=== PATIENT | female | born 1960 | race Caucasian/White ===

== ENCOUNTER 2017-11-10 08:26 | Outpatient (CLI) | payer MEDICAID, SELFPAY ==
[2017-11-10 09:08] VITALS: BP 142/86; PULSE 71; RESP 20; TEMP 37; O2SAT 95
[2017-11-10 09:43] VITALS: BP 107/78; PULSE 72; RESP 16; O2SAT 95
--- NOTE | 2017-11-10 09:45 | DI.REPORT_ITS ---
SYMPTOM/DIAGNOSIS: LUMBAR SPONDYLOSIS, LUMBAR MEDIAL BRANCH BLOCK C-ARM: Fluoroscopy Time: 18.7seconds Images submitted from the pain clinic demonstrate needles projected over the left and right pedicles of L 4, L 5 and S 1 in conjunction with a lumbar medial branch block. Please see the procedure report for further information.
[2017-11-10] MEDS: Bupivacaine 0.5% Pres-Free 30 ML VIAL IJ (09:54)
[2017-11-10] MEDS: Omnipaque 240 MG/ML 50 ML BTL IJ (09:55)
--- NOTE | 2017-11-10 09:59 | PDOC.PAIN_ITS ---
Pain Clinic Procedure Note Patient Problems: Current Active Problems Problem Status Onset Spondylosis of lumbar region without myelopathy or radiculopathy Chronic Lumbar/Sacral Medial Branch Blocks DERIK DAWKINS has been referred to the [facility] for lumbar/sacral medial branch blocks. COMMENTS: Low back pain Patient was interviewed and the medical record reviewed. There were no medical , pharmacologic, radiographic or other structural contraindications to attempting fluoroscopically guided local anesthetic lumbar/sacral medial branch blocks. Risks and expected side effects as well as potential benefit of the procedure were reviewed and voiced concerns addressed. The printed consent form was signed and witnessed. Standard time-out procedure was performed. Patient was placed in the prone position on the fluoroscopy table and automated blood pressure cuff and pulse oximeter applied. The skin entry points for approaching the anatomic target points of the segmental medial branches of { bilateral L3, 4,5} were identified with anfluoroscopy and marked. Following thorough Chlorhexadine preparation of the skin and draping and 1% lidocaine infiltration of the skin entry points and subcutaneous tissues, a 22 gauge spinal needle was placed under fluoroscopic guidance down on to the target point for each respective segmental medial branch.Position was confirmed in A/P, oblique and lateral views with 0.25ml of omnipaque 240. At each point .5ml 0.5% Bupivacaine was injected. Vital signs were stable throughout the procedure and were as recorded in the docflowsheet by the nursing staff. Follow up plans and appointments were discussed and was instructed to keep careful note of how the usual pain was modified by these injections. Specifically was asked to keep a pain diary for the next 24 hours using a numeric pain scale of 0-10 and report these results at the follow-up visit. Post procedure instruction was given as documented in the nursing documentation and having met discharge criteria. Patient was discharged from the [facility]. Based on the medial branches blocked today, if the patient has adequate relief and we are able to proceed to radiofrequency ablation, the treatment should result in the denervation of the { bilateral L4-5, L5-S1 FACET JOINTS}. We would expect to denervate a total of {4} facets during the radiofrequency ablation. COMMENTS: Pain went from 8/10-0/10. She will follow-up for either repeat block with 2% lidocaine or RF depending on her insurance and depending if she meets criteria CC: Villa Navas
== END 2017-11-10 08:27 ==
PROVIDERS: PCP General Practice; Visit Provider Anesthesiology Pain Medicine
DX: M47.816 Spondylosis without myelopathy or radiculopathy, lumbar region (principal); G89.29 Other chronic pain
CPT/HCPCS: 64493 ×2; 64494 ×2; 72100; Q9967

== ENCOUNTER 2017-12-08 09:10 | Outpatient (CLI) | payer MEDICAID, SELFPAY ==
--- NOTE | 2017-12-08 06:00 | DI.RAD_ITS ---
SYMPTOM/DIAGNOSIS: LUMBAR SPONDYLOSIS PAIN CLINIC: Fluoroscopy Time: 18.3 secs Images submitted from the Pain Clinic demonstrate positioning of needles over the facet joints at L4, L5 and L5-S1 in conjunction with injections carried out by Dr. Diaz. Please see the procedure report for further information.
[2017-12-08 09:16] VITALS: BP 146/82; PULSE 76; RESP 18; TEMP 36; O2SAT 96
--- NOTE | 2017-12-08 10:09 | PDOC.PAIN ---
Pain Clinic Procedure Note Current Active Problems Problem Status Onset Spondylosis of lumbar region without myelopathy or radiculopathy Chronic Lumbar/Sacral Medial Branch Blocks DERIK DAWKINS has been referred to the [facility] for lumbar/sacral medial branch blocks. COMMENTS: patient had previous medial branch block good results for 4 hours. Patient was interviewed and the medical record reviewed. There were no medical, pharmacologic, radiographic or other structural contraindications to attempting fluoroscopically guided local anesthetic lumbar/sacral medial branch blocks. Risks and expected side effects as well as potential benefit of the procedure were reviewed and voiced concerns addressed. The printed consent form was signed and witnessed. Standard time-out procedure was performed. Patient was placed in the prone position on the fluoroscopy table and automated blood pressure cuff and pulse oximeter applied. The skin entry points for approaching the anatomic target points of the segmental medial branches of { bilateral L 3, 4, 5 } were identified with anfluoroscopy and marked. Following thorough Chlorhexadine preparation of the skin and draping and 1% lidocaine infiltration of the skin entry points and subcutaneous tissues, a 22 gauge spinal needle was placed under fluoroscopic guidance down on to the target point for each respective segmental medial branch.Position was confirmed in A/P, oblique and lateral views with 0.25ml of omnipaque 240. At each point .5ml 2% lidocaine was injected. Vital signs were stable throughout the procedure and were as recorded in the docflowsheet by the nursing staff. Follow up plans and appointments were discussed and was instructed to keep careful note of how the usual pain was modified by these injections. Specifically was asked to keep a pain diary for the next 24 hours using a numeric pain scale of 0-10 and report these results at the follow-up visit. Post procedure instruction was given as documented in the nursing documentation and having met discharge criteria. Patient was discharged from the [facility]. Based on the medial branches blocked today, if the patient has adequate relief and we are able to proceed to radiofrequency ablation, the treatment should result in the denervation of the {bilateral L4-5, L5-W3CDYKC JOINTS}. We would expect to denervate a total of {4} facets during the radiofrequency ablation. COMMENTS: The pain went from 6/10 to 0/10. She will follow-up for radiofrequency ablation if she meets the criteria. CC: Villa Navas
[2017-12-08] MEDS: Omnipaque 240 MG/ML 50 ML BTL IJ (10:13)
[2017-12-08] MEDS: Lidocaine 2% Pres-Free 5 ML VIAL IJ (10:14)
--- NOTE | 2017-12-08 10:14 | PDOC.PAIN_ITS ---
Pain Clinic Procedure Note Current Active Problems Problem Status Onset Spondylosis of lumbar region without myelopathy or radiculopathy Chronic Lumbar/Sacral Medial Branch Blocks DERIK DAWKINS has been referred to the [facility] for lumbar/sacral medial branch blocks. COMMENTS: patient had previous medial branch block good results for 4 hours. Patient was interviewed and the medical record reviewed. There were no medical , pharmacologic, radiographic or other structural contraindications to attempting fluoroscopically guided local anesthetic lumbar/sacral medial branch blocks. Risks and expected side effects as well as potential benefit of the procedure were reviewed and voiced concerns addressed. The printed consent form was signed and witnessed. Standard time-out procedure was performed. Patient was placed in the prone position on the fluoroscopy table and automated blood pressure cuff and pulse oximeter applied. The skin entry points for approaching the anatomic target points of the segmental medial branches of { bilateral L 3, 4, 5 } were identified with anfluoroscopy and marked. Following thorough Chlorhexadine preparation of the skin and draping and 1% lidocaine infiltration of the skin entry points and subcutaneous tissues, a 22 gauge spinal needle was placed under fluoroscopic guidance down on to the target point for each respective segmental medial branch.Position was confirmed in A/P, oblique and lateral views with 0.25ml of omnipaque 240. At each point .5ml 2% lidocaine was injected. Vital signs were stable throughout the procedure and were as recorded in the docflowsheet by the nursing staff. Follow up plans and appointments were discussed and was instructed to keep careful note of how the usual pain was modified by these injections. Specifically was asked to keep a pain diary for the next 24 hours using a numeric pain scale of 0-10 and report these results at the follow-up visit. Post procedure instruction was given as documented in the nursing documentation and having met discharge criteria. Patient was discharged from the [facility]. Based on the medial branches blocked today, if the patient has adequate relief and we are able to proceed to radiofrequency ablation, the treatment should result in the denervation of the {bilateral L4-5, L5-Z3KSISL JOINTS}. We would expect to denervate a total of {4} facets during the radiofrequency ablation. COMMENTS: The pain went from 6/10 to 0/10. She will follow-up for radiofrequency ablation if she meets the criteria. CC: Villa Navas
[2017-12-08 10:15] VITALS: BP 173/88; PULSE 86; RESP 21; O2SAT 97
== END 2017-12-08 09:30 ==
PROVIDERS: PCP General Practice; Visit Provider Anesthesiology Pain Medicine
DX: M47.816 Spondylosis without myelopathy or radiculopathy, lumbar region (principal); G89.29 Other chronic pain
CPT/HCPCS: 64493 ×2; 64494 ×2; 64495 ×2; 72100; Q9967

== ENCOUNTER 2017-12-30 07:33 | Outpatient (CLI) | payer MEDICAID, SELFPAY ==
[2017-12-30 07:42] VITALS: BP 134/86; PULSE 75; RESP 18; TEMP 36.8; O2SAT 96
[2017-12-30] MEDS: fentaNYL 100 MCG/2 ML VIAL IVP ×2 (08:26→08:31)
[2017-12-30] MEDS: Midazolam 2 MG/2 ML VIAL IVP (08:26)
[2017-12-30] MEDS: Lactated Ringers 1,000 ML 80 ML IV (08:27)
--- NOTE | 2017-12-30 08:55 | DI.RAD_ITS ---
SYMPTOM/DIAGNOSIS: LUMBAR SPONDYLOSIS C-ARM: Fluoroscopy Time: 67 sec., 20.31 mGy. Images submitted from the pain clinic demonstrate needle positioning over the right and left lateral portions of the L 4, L 5 and L 5-S 1 levels in conjunction with a radiofrequency ablation. Please see Dr. Loera's procedure report for further information.
[2017-12-30 08:58] VITALS: BP 155/96; PULSE 71; RESP 14; O2SAT 96
--- NOTE | 2017-12-30 09:07 | PDOC.PAIN_ITS ---
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 DERIK has had long standing back pain thought to be facet joint generated and which has been refractory to other therapies. Local anesthetic medial branch blocks or intra- articular facet joint injections resulted in DERIK reporting reduction of the usual axial component of pain for at least the duration of the local anesthetic effect. COMMENTS: Previous success with LMBBs X 2 Patient was interviewed and the medical record reviewed. There were no medical , pharmacologic, radiographic or other structural contraindications to attempting fluoroscopically guided radiofrequency treatment. Risks and expected side effects as well as potential benefit of the procedure were reviewed and voiced concerns addressed. The printed consent form was signed and witnessed. Standard time-out procedure was performed. Patient was placed in the prone position on the fluoroscopy table and automated blood pressure cuff and pulse oximeter applied. The skin entry points for approaching the anatomic target points of the segmental medial branches of bilateral L3-L5DR were identified with fluoroscopy and marked. Following thorough Chlorhexadine preparation of the skin and draping and 1% lidocaine infiltration of the skin entry points and subcutaneous tissues, a single 18 guage curved 10 cm 10mm active tip radiofrequency cannula was placed under fluoroscopic guidance along or across the anatomic course of each respective segmental medial branch. Each placement was stimulated at 50Hz and les then 0.5V for medial branch sensory localization and the at 2Hz and up to 3 times the sensory voltage without any evidence of distal myotomal stimulation. 1cc of 1% ;idocaine was injected at each site. At each placement a continuous mode radiofrequency treatment was done at 85 degrees C for 90secs. 1/3 cc of Depomedrol (40 mg/cc) and 1 cc of 0.5% Bupivacaine was injected at each segmental branch nerve. The needles were removed without difficulty. This radiofrequency treatment should result in the denervation of the bilateral L4-L5 and L5-S1 FACET JOINTS. A total of 4 facets were expected to be denervated from today's treatment. Vital signs were stable throughout the procedure and were as recorded in the docflowsheet by the nursing staff. If given, dosages of intravenous drugs for anxiolysis and analgesia were documented in the Medication Administration Record (MAR). Follow up plans and appointments were discussed. Post procedure instruction was given as documented in the nursing documentation and having met discharge criteria, DERIK was discharged from the [facility]. COMMENTS: This procedure can be repeated without repeating the LMBBs if it gives her at least 6 months of pain relief. Villa Loera DO, MPH [facility] - Subspecialty Board Certification in Pain Medicine CC: Villa Navas
[2017-12-30] MEDS: Bupivacaine 0.5% Pres-Free 30 ML VIAL IJ (09:16)
[2017-12-30] MEDS: methylPREDNISolone ACETATE 40 MG/ML VIAL IJ (09:16)
[2017-12-30] MEDS: Lidocaine 2% Pres-Free 2 ML VIAL IJ (09:17)
== END 2017-12-30 07:53 ==
PROVIDERS: PCP General Practice; Visit Provider Preventive Medicine Occupational Medicine
DX: M47.816 Spondylosis without myelopathy or radiculopathy, lumbar region (principal); G89.29 Other chronic pain
CPT/HCPCS: 64635 ×2; 64636 ×2; 72100; J1030; J2250; J3010

== ENCOUNTER 2018-07-19 07:40 | Outpatient (CLI) | payer MEDICAID, SELFPAY ==
--- NOTE | 2018-07-19 06:00 | DI.RAD_ITS ---
SYMPTOM/DIAGNOSIS: LUMBAR SPONDYLOLYSIS C-ARM: Fluoroscopy Time: 75.8 seconds /26.21 mGy Fluoroscopy was utilized by Dr. Loera during the performance of a lumbar radiofrequency ablation. Please refer to the procedure report for complete details.
[2018-07-19 07:47] VITALS: BP 163/91; PULSE 75; RESP 18; TEMP 36.5; O2SAT 95
[2018-07-19] MEDS: Lactated Ringers 1,000 ML 80 ML IV (08:20)
[2018-07-19] MEDS: Midazolam 2 MG/2 ML VIAL IVP (08:23)
[2018-07-19] MEDS: fentaNYL 100 MCG/2 ML VIAL IVP ×2 (08:23→08:32)
[2018-07-19 09:07] VITALS: BP 162/96; PULSE 79; RESP 11; O2SAT 96
--- NOTE | 2018-07-19 09:07 | PDOC.PAIN ---
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 DERIK has had long standing back pain thought to be facet joint generated and which has been refractory to other therapies. Local anesthetic medial branch blocks or intra-articular facet joint injections resulted in DERKI reporting reduction of the usual axial component of pain for at least the duration of the local anesthetic effect. COMMENTS:She did very well the last RFA obtaining >6 months relief Patient was interviewed and the medical record reviewed. There were no medical, pharmacologic, radiographic or other structural contraindications to attempting fluoroscopically guided radiofrequency treatment. Risks and expected side effects as well as potential benefit of the procedure were reviewed and voiced concerns addressed. The printed consent form was signed and witnessed. Standard time-out procedure was performed. Patient was placed in the prone position on the fluoroscopy table and automated blood pressure cuff and pulse oximeter applied. The skin entry points for approaching the anatomic target points of the segmental medial branches of bilateral L3-L5DR were identified with fluoroscopy and marked. Following thorough Chlorhexadine preparation of the skin and draping and 1% lidocaine infiltration of the skin entry points and subcutaneous tissues, a single 18 guage curved 10 cm 10mm active tip radiofrequency cannula was placed under fluoroscopic guidance along or across the anatomic course of each respective segmental medial branch. Each placement was stimulated at 50Hz and les then 0.5V for medial branch sensory localization and the at 2Hz and up to 3 times the sensory voltage without any evidence of distal myotomal stimulation. 1cc of 1% ;idocaine was injected at each site. At each placement a continuous mode radiofrequency treatment was done at 80 degrees C for 90secs . This radiofrequency treatment should result in the denervation of the bilateral L4-L5 and L5-S1 FACET JOINTS. A total of 4 facets were expected to be denervated from today's treatment. Vital signs were stable throughout the procedure and were as recorded in the docflowsheet by the nursing staff. If given, dosages of intravenous drugs for anxiolysis and analgesia were documented in the Medication Administration Record (MAR). Follow up plans and appointments were discussed. Post procedure instruction was given as documented in the nursing documentation and having met discharge criteria, DERIK was discharged from the [facility]. COMMENTS: If she obtains at least 6 months of relief from this procedure, she can have it repeated without repeating the LMBBs. CC: Villa Navas
[2018-07-19] MEDS: methylPREDNISolone ACETATE 40 MG/ML VIAL IJ (09:09)
[2018-07-19] MEDS: Lidocaine 2% Pres-Free 5 ML VIAL IJ (09:10)
[2018-07-19] MEDS: Bupivacaine 0.5% Pres-Free 10 ML VIAL IJ (09:10)
== END 2018-07-19 08:00 ==
PROVIDERS: PCP General Practice; Visit Provider Preventive Medicine Occupational Medicine
DX: M47.816 Spondylosis without myelopathy or radiculopathy, lumbar region (principal); G89.29 Other chronic pain
CPT/HCPCS: 64635 ×2; 64636 ×2; 72100; J1030; J2250; J3010

== ENCOUNTER 2019-05-19 02:56 | Outpatient (CLI) | payer MEDICAID, SELFPAY ==
--- NOTE | 2019-05-19 14:00 | DI.CTLCSR_ITS ---
EXAM: CT CHEST LUNG CANCER SCREEN CLINICAL HISTORY: Screening for lung cancer Z87.891 PERS HX NICOTINE DEPENDENCE, Z12.2 SCREEN TECHNIQUE: Low-dose noncontrast COMPARISON: No exams were available for comparison FINDINGS: The right lobe of the thyroid is and is enlarged and partially included on the exam. Peripherally c alcified nodules are identified. The heart size is normal. There are mild coronary artery calcifica tions. There are no significant aortic calcifications. There is no evidence of adenopathy, pleural or pericardial effusion. Suture material is seen at the stomach. The patient is status post cholecy stectomy. The adrenals are and pancreas are grossly normal. No pulmonary nodules are identified. T here are no infiltrates. There are no significant emphysematous or interstitial changes. IMPRESSION: Lung RADS Cat 1 - Negative: No nodules and definitely benign nodules. Annual low-dose screening ches t CT is recommended.
== END 2019-05-19 03:16 ==
PROVIDERS: PCP Student in an Organized Health Care Education/Training Program; Visit Provider Student in an Organized Health Care Education/Training Program
DX: Z12.2 Encounter for screening for malignant neoplasm of respiratory organs (principal); E07.9 Disorder of thyroid, unspecified; J98.4 Other disorders of lung; Z90.49 Acquired absence of other specified parts of digestive tract
CPT/HCPCS: G0297

== ENCOUNTER 2019-08-14 01:50 | Outpatient (CLI) | payer MEDICAID, SELFPAY ==
--- NOTE | 2019-08-14 | DI.US_ITS ---
EXAM: US THYROID CLINICAL HISTORY: ? GOITER, EVALUATE ENLARGEMENT, ? NODES, NONTOXIC GOITER, E04.9 TECHNIQUE: Thyroid ultrasound was performed according to the usual protocol. COMPARISON: US ABDOMEN ULTRASOUND (P) from 02/25/2016 FINDINGS: There is a markedly heterogeneous mass involving most of the right lobe of the thyroid measuring up t o about 4.5 cm in diameter, the borders are difficult to evaluate but may be lobulated or irregular. Extrathyroidal extension not excluded. Mass may be taller than wide. This contains multiple cystic and solid regions and is hypervascular. There is diffuse scattered calcification throughout the mas s. An additional poorly visualized 18 millimeter mass is seen in the lower pole of the right thyroid lobe. IMPRESSION: Suspicious right thyroid lobe mass, TI-RADS classification is probably TR4; fine needle aspiration re commended for lesion size greater than 1.5 cm. DATA REPOSITORY:
== END 2019-08-14 02:10 ==
PROVIDERS: PCP Student in an Organized Health Care Education/Training Program; Visit Provider Student in an Organized Health Care Education/Training Program
DX: E04.1 Nontoxic single thyroid nodule (principal); E07.89 Other specified disorders of thyroid
CPT/HCPCS: 76536

== ENCOUNTER 2019-10-03 02:17 | Outpatient (CLI) | payer MEDICAID, SELFPAY ==
[2019-10-03 10:55] LABS: ALT 20 U/L (14-59); AST 17 U/L (15-37); Albumin 3.8 g/dL (3.4-5.0); Alkaline Phosphatase 51 U/L (46-116); Anion Gap 6.5 mmol/L (3-11); BUN 15 mg/dL (7-18); Bilirubin, Total 0.4 mg/dL (0.2-1.0); CO2 29.5 mmol/L (21.0-32.0); CREATININE 0.94 mg/dL (0.55-1.02); Calcium 9.2 mg/dL (8.5-10.1); Calculated LDL 89 mg/dL (<100); Chloride 105 mmol/L (98-107); Cholesterol 163 mg/dL (<200); Glucose 105 mg/dL (74-106); HDL Cholesterol 59 mg/dL (40-60); Potassium 4.5 mmol/L (3.5-5.1); Sodium 141 mmol/L (136-145); Triglyceride 79 mg/dL (<150)
[2019-10-03 11:03] LABS: TSH (W/Ref FT4) 0.73 uIU/mL (0.36-3.74)
== END 2019-10-03 02:37 ==
PROVIDERS: PCP Student in an Organized Health Care Education/Training Program; Visit Provider Student in an Organized Health Care Education/Training Program
DX: E04.9 Nontoxic goiter, unspecified
CPT/HCPCS: 36415; 80053; 80061; 84443

== ENCOUNTER 2019-10-18 03:58 | Outpatient (CLI) | payer MEDICAID, SELFPAY ==
[2019-10-18 10:55] LABS: Vitamin B12 514 pg/mL (193-986)
[2019-10-19 04:52] LABS: Vitamin D 25 Total 31.3 ng/ml (30-100)
== END 2019-10-18 04:18 ==
PROVIDERS: PCP Student in an Organized Health Care Education/Training Program; Visit Provider Nurse Practitioner Psychiatric/Mental Health
DX: F34.1 Dysthymic disorder (principal)
CPT/HCPCS: 36415; 82306; 82607

== ENCOUNTER 2019-12-07 01:36 | Outpatient (CLI) | payer MEDICAID, SELFPAY ==
--- NOTE | 2019-12-07 | DI.US_ITS ---
EXAM: NON TOXIC MULTINODULAR GOITER, ULTRASOUND ASSISTED FINE NEEDLE ASPIRATION, COMPARISON: No exams were available for comparison TECHNIQUE: Ultrasound performed using standard protocol. FINDINGS: Sonography was provided for Dr. Albright during the performance of a FNA of a thyroid nodule. Please refer to the procedure report for complete details. DATA REPOSITORY:
--- NOTE | 2019-12-07 07:30 | PAPNONF_PTH ---
PATIENT: Stefania Pate LOC: [facility] U#:[id number] AGE/SX: 59/F ROOM: RE12/07/[address]: Owen Albright MD : [id number] BED: DIS: 12/07/2019 SPEC #: [id number] RECD: 12/07/19 12:52 STATUS: [facility] REQ #: [id number] CHRISTINE: 12/07/19 07:[address]: Owen Albright DEPT: [facility] Cytology RECD BY: Layla Gaviria ENTERED: 12/07/19 12:53 SP TYPE: KATE GUIDRY DR: Nora Nicholas DO Tissues: 1 - BODY FLUID CYTO-FINE NEEDLE ASPIRATE-[facility] Procedures: BODY FLUID CYTO-FINE NEEDLE ASPIRATE-[facility] Comments: [id number]
--- NOTE | 2019-12-07 08:12 | W.PROCNOTE ---
Date of service: 11/17/19 Procedure Note Date of procedure: 12/03/19 Procedure: Ultrasound-guided FNA of right thyroid nodule Surgeon/Proceduralist/Physician: Owen Albright Procedure Diagnosis: Right thyroid complex nodule Procedure Indications: The patient has a large right-sided complex thyroid nodule. This has not been biopsied. Procedure Description: I reviewed the findings with the patient. I recommended aspiration of the fluid from the complex nodule, with subsequent FNA of the tissue within the nodule. The patient agreed. Risks and benefits as well as the operative and postoperative courses were reviewed at length. Consent was obtained. Following this, the ultrasound probe was used to localize the right complex thyroid nodule, and the patient was prepped and draped in appropriate fashion. 1% lidocaine with 1/100,000 epinephrine was injected into the skin and subcutaneous tissues just medial to the nodule, and then an 18-gauge Angiocath introduced into the cystic component of the thyroid nodule. Roughly 12 cc of clear thin fluid was removed and was discarded. Following this, after ensuring adequate hemostasis, a 25-gauge needle was carefully introduced into the thyroid nodule, and multiple passes made through the thyroid nodule. Specimen was placed in CytoLyt and sent to pathology. After ensuring adequate hemostasis, the patient was allowed to sit up. A sterile dressing was applied. Her vital signs remained stable and she was able to ambulate comfortably afterwards. There was no significant bruising or bleeding. She is aware that she is to remove the bandage in a couple of hours and not replace it. She is to call with any signs of infection or concern. She will use ibuprofen or Tylenol for any discomfort. She will call if she does not hear from me within 1 week. She had no further questions. She is comfortable with the plan.
== END 2019-12-07 01:56 ==
PROVIDERS: PCP Student in an Organized Health Care Education/Training Program; Visit Provider Otolaryngology
DX: E04.1 Nontoxic single thyroid nodule (principal)
CPT/HCPCS: 10005; 76942; 88104

== ENCOUNTER 2021-01-06 00:23 | Outpatient (CLI) | payer MEDICAID, SELFPAY ==
--- NOTE | 2021-01-06 08:15 | DI.RAD_ITS ---
Exam(s) XR THORACIC SPINE COMPLETE EXAM: XR THORACIC SPINE COMPLETE CLINICAL HISTORY: evaluate for bony pathology,CHRONIC MID BACK PAIN, M54.9. TECHNIQUE: 2D digital imaging was performed. COMPARISON: No exams were available for comparison FINDINGS: No evidence thoracic spinal fracture or listhesis. No abnormal widening of the paraspinal lines. Di sc spaces exhibit height although on the lateral view there is moderate-severe disc space narrowing i n the lower cervical spine evident. There is no abnormal widening the paraspinal lines. No osseous lesions. Evidence of previous left upper quadrant abdominal surgery. IMPRESSION: DATA REPOSITORY: RADIATION DOSE DELIVERED:
--- NOTE | 2021-01-06 08:15 | DI.RAD_ITS ---
Exam(s) XR LUMBAR SPINE COMP W FLEX/EX EXAM: XR LUMBAR SPINE COMP W FLEX/EX CLINICAL HISTORY: evaluate spondylosis in flex/ext,ACUTE EXAC OF LOW BACK PAIN, M54.50,M47.81. TECHNIQUE: 2D digital imaging was performed. COMPARISON: CR LUMBAR SPINE AP, LAT from 01/10/2015 FINDINGS: Is no evidence of fracture or listhesis nor pars interarticularis defects. All the disc spaces the l umbar spine exhibit normal height. Mild facet degenerative changes lower 2 levels. Sacroiliac joint s appear unremarkable. Is evidence of previous surgery in left upper quadrant. IMPRESSION: DATA REPOSITORY: RADIATION DOSE DELIVERED:
== END 2021-01-06 00:43 ==
PROVIDERS: PCP Student in an Organized Health Care Education/Training Program; Visit Provider Student in an Organized Health Care Education/Training Program
DX: M54.6 Pain in thoracic spine (principal); M51.34 Other intervertebral disc degeneration, thoracic region; M54.59 Other low back pain; M47.816 Spondylosis without myelopathy or radiculopathy, lumbar region; G89.29 Other chronic pain
CPT/HCPCS: 72114; 72072

== ENCOUNTER 2021-01-06 00:31 | Outpatient (CLI) | payer MEDICAID, SELFPAY ==
--- NOTE | 2021-01-06 08:15 | DI.US_ITS ---
Exam(s) US THYROID EXAM: US THYROID CLINICAL HISTORY: Multinodular thyroid, assess for change,E04.2. TECHNIQUE: Ultrasound thyroid performed using standard protocol. COMPARISON: US US THYROID from 08/14/2019 US US NEEDLE LOCAL OTHER WO RAD from 12/07/2019. FINDINGS: RIGHT THYROID LOBE: Measures 3.2 cm AP x 4.5 cm wide x 6.8 cm craniocaudal The right thyroid lobe is again noted to be expanded by a large heterogeneous nodule, this being the nodule which was previously biopsied Nodule #1 Size: Measures 4.2 x 3.3 x 3.6 cm Composition: No [id number] Echogenicity: Isoechoic-1 point Shape: Wider than taller-0 points Margin: Smooth- 0 points Echogenic Foci: None or large comet-tail artifact- 0 points Total Points for this nodule: 3 ACR Ti-Rads Category: TR3 it this nodule should be biopsied given leonardo t it is greater than 2.5 cm. Apparently this has already biopsied. Nodule #2 this is located more inferiorly in the right lobe. Size: Measures 1.8 x 1.4 x 1.7 cm Composition: Solid-2 points Echogenicity: Isoechoic-1 point Shape: Wider than taller- 0 points Margin: Smooth-0 points Echogenic Foci: Peripheral and calcified-2 points Total points for this nodule: 5 ACR Ti-Rads Category: TR4-FNA recommended ISTHMUS: 4-5 millimeter thickness LEFT THYROID LOBE: Measures 0.8 cm AP x 0.9 wide x 4.7 cm craniocaudal Nodule #1 Size: Measures 0.7 x 0.6 x 0.8 cm Composition: Mixed-1 point- points Echogenicity: Isoechoic-1 point points Shape: Wider than taller-0 points points Margin: Smooth-0 points Echogenic Foci: None-0 point points Total points for this nodule: 2 ACR Ti-Rads Category: 2 Nodule #2 Size: Measures 0.3 x 0.2 x 0.3 cm Composition: Solid-2 point Echogenicity: Hypoechoic-2 points Shape: Wider than taller-0 points Margin: Smooth 0 point Echogenic Foci: None-0 points Total Points for this nodule: 4 ACR Ti-Rads Category: 4 This nodule can be followed as it measures less than 1 cm. LYMPH NODES: There is no significant adenopathy. IMPRESSION: 1. Large complex nodule in the right thyroid lobe is apparently been biopsied, apparently benign rivera ins stable 2. In the lower aspect of the right thyroid lobe there is a 1.8 x 1.4 x 1.7 cm peripherally calcified nodule which exhibits 5 points- TiRads 4 and is moderately suspicious and should be biopsied given t hat it measures greater than 1 cm. However, this does not appear appreciably changed in size when co mpared to 08/14/2019. 3. Findings in the left lobe can be followed conservatively given their roots of size. DATA REPOSITORY:
== END 2021-01-06 00:51 ==
PROVIDERS: PCP Student in an Organized Health Care Education/Training Program; Visit Provider Otolaryngology
DX: E04.2 Nontoxic multinodular goiter (principal)
CPT/HCPCS: 76536

== ENCOUNTER 2021-03-19 04:10 | Outpatient (CLI) | payer MEDICAID, SELFPAY ==
[2021-03-19 10:55] LABS: Anion Gap 8.5 mmol/L (3-11); BUN 18 mg/dL (7-18); CO2 29.5 mmol/L (21.0-32.0); CREATININE 0.9 mg/dL (0.55-1.02); Calcium 9.1 mg/dL (8.5-10.1); Chloride 104 mmol/L (98-107); Glucose 100 mg/dL (74-106); Potassium 4.1 mmol/L (3.5-5.1); Sodium 142 mmol/L (136-145)
== END 2021-03-19 04:11 | disposition home or self-care (01) ==
LOC: LBO 04:10
PROVIDERS: PCP Student in an Organized Health Care Education/Training Program; Visit Provider Student in an Organized Health Care Education/Training Program
DX: E04.2 Nontoxic multinodular goiter; R79.89 Other specified abnormal findings of blood chemistry; E86.0 Dehydration; N28.9 Disorder of kidney and ureter, unspecified
CPT/HCPCS: 36415; 80048; 84443

== ENCOUNTER 2022-03-11 16:24 | Outpatient (REF) | payer MEDICAID, SELFPAY ==
--- NOTE | 2022-03-11 16:00 | PAPFT_PTH ---
PATIENT: Stefania Pate LOC: [facility] U#:[id number] AGE/SX: 62/F ROOM: RE03/11/[address]: Deidra Weston MD : [id number] BED: DIS: 03/11/2022 SPEC #: [id number] RECD: 03/12/22 12:17 STATUS: DURGA REMukesh #: [id number] CHRISTINE: 03/11/22 16:[address]: Deidra Weston DEPT: [facility] Cytology RECD BY: Phoebe Cortez ENTERED: 03/12/22 12:18 SP TYPE: PAPFT OTHR DR: Nora Nicholas, DO Tissues: 1 - CX/ENDOCX FOR PAP SMEARS Procedures: PAP THIN PREP/[facility] Screening HPV DNA PROBE Comments: [id number]
== END 2022-03-11 16:25 | disposition home or self-care (01) ==
LOC: LBN 16:24
PROVIDERS: PCP Student in an Organized Health Care Education/Training Program; Visit Provider Obstetrics & Gynecology
DX: Z12.4 Encounter for screening for malignant neoplasm of cervix (principal); Z11.51 Encounter for screening for human papillomavirus (HPV)
CPT/HCPCS: 88142; 87624

== ENCOUNTER 2022-07-01 01:55 | Outpatient (CLI) | payer MEDICAID, SELFPAY ==
--- NOTE | 2022-07-01 08:00 | DI.MAMMO_ITS ---
Exam(s) MAMMO SCREENING EXAM: MAMMO SCREENING CLINICAL HISTORY: screening,Z12.39 TECHNIQUE: Bilateral full field digital CC and MLO mammographic images were obtained with 3D tomosyn thesis and utilizing computer aided detection (CAD). COMPARISON: Available for comparison. FINDINGS: Masses/Architectural Distortion: None seen. Microcalcifications: No suspicious pleomorphic-type are seen. Skin Thickening/Nipple Retraction: None. IMPRESSION: 1. No significant interval change with no specific features of malignancy noted. 2. Unless there is more urgent need, screening mammography is recommended, as per [employer] guidelines. BI-RADS Category 1 - Negative Breast Density - Category B - Scattered areas of fibroglandular density Breast density category C or D implies that the patient has dense breast tissue. Dense breast tissue is very common and is not abnormal but dense breast tissue can make it harder to find cancer on a ma mmogram. Also, dense breast tissue may increase their breast cancer risk. This information about the result of the mammogram report was provided to the patient to raise their awareness. Use this report when you speak with the patient about their risks for breast cancer, which includes their family hist ory. At that time, you may recommend for more screening tests (Ultrasound or MRI) as they might be us eful based on their risk. A negative radiographic report should not delay biopsy if a dominant or clinically suspicious mass is present. Up to ten percent of cancers are not identified on mammography. A negative report may reinforce clinical impression. Adenosis and dense breasts may obscure an underlying neoplasm. False positive reports average 6 to 10%. Patient will receive a letter notifying them of these results.
--- NOTE | 2022-07-01 08:00 | DI.CTLCSR_ITS ---
Exam(s) CT CHEST LUNG CANCER SCREEN EXAM: CT CHEST LUNG CANCER SCREEN CLINICAL HISTORY: SCREENING FOR LUNG CA, FORMER SMOKER, Z87.891 TECHNIQUE: Imaging Protocol: Axial computed tomography images with coronal and sagittal reformatted images were created and reviewed COMPARISON: CT CT CHEST LUNG CANCER SCREEN from 05/19/2019 FINDINGS: Tracheobronchial tree: Patent where visualized. Pulmonary parenchyma: No consolidation or dominant measurable mass. No architectural distortion. Lung Nodules: There is a 5 mm ground-glass nodule in the lateral aspect of the right upper lobe. Mediastinum and Anette: No dominant adenopathy or fluid collection. The esophagus is unremarkable. Thyroid gland: There again seen calcified nodules in the right lobe of the thyroid gland. Lymph nodes: Unremarkable. Pleura: No effusion or pneumothorax. Heart: The heart is not dilated. Mild coronary artery calcification is present. No pericardial effus ion. Aorta: Thoracic aorta non-dilated.Mild atherosclerosis. Upper abdomen: Postsurgical changes are seen in the stomach. Status post cholecystectomy. Soft Tissues: Unremarkable. Bones: Within normal limits. IMPRESSION: 5 mm ground-glass nodule in the lateral aspect of the right upper lobe. Lung RADS Cat 3 - Probably Benign: Probably benign finding(s) - short term follow-up suggested; inclu de nodules with a low likelihood of becoming a clinically active cancer. Lung-RADS 1.0 CATEGORIES: Category 0 - Prior chest CT exam(s) being located for comparison. Category 1 - Annual screening in 12 months. No nodules or definitely benign nodules. Category 2 - Annual screening in 12 months. Benign appearance. Nodules with low likelihood of becomin g active cancer. Category 3 - 6-month follow-up. Probably benign. Short-term follow-up suggested. Nodules with low lik elihood of becoming active cancer. Category 4A - 3-month follow-up and CT/PET if >8 mm in size. Suspicious finding. Findings which requi re additional testing. Category 4B - Findings which require additional testing and tissue sampling. Suspicious finding. Category 4X - Category 3 or 4 nodules with additional features or imaging findings that increases the suspicion of malignancy. Modifier S- Potentially clinically significant finding. (Non lung cancer) RADIATION DOSE DELIVERED: 80.76mGy.cm Total DLP 80.76mGy.cmTotal DLP DATA REPOSITORY: All CT scans at this facility are submitted to the National Radiology Data Registry (NRDR) Dose Index Registry (DIR) with the [employer] (A[employer]). RADIATION OPTIMIZATION: All CT scans at this facility use at least one of these dose optimization te chniques: automated exposure control; mA and/or kV adjustment per patient size (includes targeted exa ms where dose is matched to clinical indication); or iterative reconstruction.
== END 2022-07-01 02:15 ==
PROVIDERS: PCP Student in an Organized Health Care Education/Training Program; Visit Provider Student in an Organized Health Care Education/Training Program
DX: Z87.891 Personal history of nicotine dependence (principal); Z12.31 Encounter for screening mammogram for malignant neoplasm of breast
CPT/HCPCS: 71271; 77063; 77067

== ENCOUNTER 2022-09-17 02:26 | Outpatient (CLI) | payer MEDICAID, SELFPAY ==
--- NOTE | 2022-09-17 08:30 | DI.US_ITS ---
Exam(s) US THYROID EXAM: US THYROID CLINICAL HISTORY: Assess for change, MULTINODULAR THYROID, E04.2. TECHNIQUE: Ultrasound thyroid performed using standard protocol. COMPARISON: US US THYROID from 01/06/[address] CHEST LUNG CANCER SCREEN from 07/01/2022 FINDINGS: ISTHMUS: 5 mm RIGHT LOBE: Size: 5.8 x 2.4 x 3.3 cm Echogenicity: Heterogeneous Vascularity: Normal. Nodules: #1: 3.8 x 2.4 x 3.2 cm, measuring smaller than prior. Mixed cystic and solid, isoechoic, sm oothly marginated with macrocalcifications, TR 3. Previously biopsied. #2: 1.6 x 1.1 x 1.1 cm peripherally calcified nodule with heavy shadowing, composition and echogenic ity cannot be determined. Unchanged in size., TR 4 LEFT LOBE: Size: 3.0 x 1.3 x 1.2 cm Echogenicity: Heterogeneous Vascularity: Normal. Nodules: #3: 1.1 x 0.7 x 0.8 centimeter mixed cystic and solid lesion, isoechoic, smoothly marginated , without echogenic foci, TR 2. OTHER FINDINGS: None. IMPRESSION: Stable appearance of thyroid nodules. DATA REPOSITORY:
== END 2022-09-17 02:46 ==
PROVIDERS: PCP Student in an Organized Health Care Education/Training Program; Visit Provider Otolaryngology
DX: E04.2 Nontoxic multinodular goiter (principal)
CPT/HCPCS: 76536

== ENCOUNTER → 2022-12-02 02:37 | Outpatient (CLI) | payer MEDICAID, SELFPAY ==
--- NOTE | 2022-12-02 08:30 | DI.CT_ITS ---
Exam(s) CT CHEST WO EXAM: CT CHEST WO CLINICAL HISTORY: Evaluate small nodule, 6-month follow-up,R91.1 TECHNIQUE: Imaging Protocol: Axial computed tomography images with coronal and sagittal reformatted images were created and reviewed CONTRAST MATERIAL: Intravenous: Omnipaque 350 Contrast volume:structured data ml. COMPARISON: CT CT CHEST LUNG CANCER SCREEN from 07/01/2022 FINDINGS: Pulmonary parenchyma: No consolidation. No dominant measurable mass. Previously noted 5 millimeter right upper lobe nodule is no longer visible. New nodules. Tracheobronchial tree: No bronchiectasis or mucous plugging. Mediastinum and Anette: No dominant adenopathy or fluid collection. Pleura: No effusion. No pneumothorax. Heart: The heart is not dilated. Minimal coronary artery calcifications are seen. Aorta: Thoracic aorta non-dilated. No atherosclerotic changes. Upper abdomen: Prior gastric surgery. Status post cholecystectomy. Bones: Degenerative changes in the spine. Soft tissues: Unremarkable. IMPRESSION: Resolution of previously noted right upper lobe ground-glass nodule. No new nodules. No acute abnor mality.Low-dose screening CT could be considered in 1 year given history of smoking. RADIATION DOSE DELIVERED: 730.46mGy.cm Total DLP DATA REPOSITORY: All CT scans at this facility are submitted to the National Radiology Data Registry (NRDR) Dose Index Registry (DIR) with the [employer] ([employer]). RADIATION OPTIMIZATION: All CT scans at this facility use at least one of these dose optimization te chniques: automated exposure control; mA and/or kV adjustment per patient size (includes targeted exa ms where dose is matched to clinical indication); or iterative reconstruction.
== END ==
PROVIDERS: PCP Student in an Organized Health Care Education/Training Program; Visit Provider Student in an Organized Health Care Education/Training Program
DX: R91.1 Solitary pulmonary nodule (principal)
CPT/HCPCS: 71250

== ENCOUNTER → 2023-02-24 03:44 | Outpatient (CLI) | payer MEDICARE, MEDICAID, SELFPAY ==
--- NOTE | 2023-02-24 08:00 | DI.RAD_ITS ---
Exam(s) XR WRIST LT COMP NAVICULAR EXAM: XR WRIST LT COMP NAVICULAR CLINICAL HISTORY: evaluate joint space,BILAT WRIST PAIN,M25.531,M25.532,M65.9. TECHNIQUE: 2D digital imaging was performed of the left wrist. Four images were obtained. Scaphoid , PA, oblique and lateral views were obtained. COMPARISON: CR RIGHT WRIST COMPLETE from 07/06/2016 FINDINGS: BONES: No acute fracture is present. There is an unchanged nonunited fracture the proximal pole of t he scaphoid. No bony destructive lesion is seen. JOINTS: The carpal bones are normally aligned. There are marked degenerative changes seen at the 1st CMC joint with joint space narrowing and osteophytes. SOFT TISSUE: Normal. IMPRESSION: 1. No acute abnormality. 2. 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 3. Degenerative changes of the 1st CMC joint. DATA REPOSITORY: RADIATION DOSE DELIVERED:
--- NOTE | 2023-02-24 08:00 | DI.RAD_ITS ---
Exam(s) XR WRIST RT COMPL NAVICULAR EXAM: XR WRIST RT COMPL NAVICULAR CLINICAL HISTORY: evaluate joint space,BILAT WRIST PAIN,M25.531,M25.532,?ARTHRITIS,TENOSYNOV. TECHNIQUE: 2D digital imaging was performed of the right wrist. Four views were obtained. Scaphoid, PA, lateral and oblique views were obtained. COMPARISON: CR right WRIST COMPLETE from 07/06/2016 FINDINGS: BONES: No acute fracture is present. No bony destructive lesion is seen. JOINTS: The carpal bones are normally aligned. Moderate degenerative changes are seen at the 1st CMC joint with joint space narrowing and osteophytes present. SOFT TISSUE: Normal. IMPRESSION: Moderate degenerative changes of the 1st CMC joint. DATA REPOSITORY: RADIATION DOSE DELIVERED:
== END ==
PROVIDERS: PCP Student in an Organized Health Care Education/Training Program; Visit Provider Student in an Organized Health Care Education/Training Program
DX: S62.03 Fracture of proximal third of navicular [scaphoid] bone of wrist; X58.XXXS Exposure to other specified factors, sequela; M19.031 Primary osteoarthritis, right wrist; M19.032 Primary osteoarthritis, left wrist
CPT/HCPCS: 73110

== ENCOUNTER 2023-07-08 05:52 | Outpatient (CLI) | payer MEDICARE, MEDICAID, SELFPAY ==
[2023-07-08 16:04] LABS: Anion Gap 8.7 mmol/L (3-11); BUN 14 mg/dL (7-18); CO2 30.3 mmol/L (21.0-32.0); Calcium 8.9 mg/dL (8.5-10.1); Chloride 106 mmol/L (98-107); Estimated GFR 62.52 (mL/min/1.73m2); Glucose 79 mg/dL (74-106); Potassium 3.7 mmol/L (3.5-5.1); Sodium 145 mmol/L (136-145)
== END 2023-07-08 05:53 | disposition home or self-care (01) ==
LOC: LBO 05:52
PROVIDERS: PCP Student in an Organized Health Care Education/Training Program; Referring Provider Student in an Organized Health Care Education/Training Program; Visit Provider Student in an Organized Health Care Education/Training Program
DX: Z79.1 Long term (current) use of non-steroidal anti-inflammatories (NSAID) (principal)
CPT/HCPCS: 36415; 80048

== ENCOUNTER 2023-12-24 15:43 | Emergency (ER) | payer MEDICARE, MEDICAID, SELFPAY ==
[2023-12-24] VITALS (27 sets, daily range): BP systolic 76–114; BP diastolic 40–100; PULSE 78–149; RESP 12–30; TEMP 2.6–37.2; O2SAT 87–95
--- NOTE | 2023-12-24 15:30 | RT.EKG_ITS ---
APPROVED REPORT Exam: Resting ECG Reason for Exam: Dyspnea Patient Location: E HR:114 bpm ECG Measurements Heart Rate 114 AXIS NE [id number] P [id number] QRSd 98 QRS 246 QT 338 T 83 QTc 466 Conclusion Atrial fibrillation...V-rate 113-115, irreg A-activity Ventricular premature complex...V complex w/ short R-R interval Aberrant conduction of SV complex(es)...aberrant shape, NE 80-220 Inferior infarct, old...Q >35mS, II III aVF Nonspecific T abnormalities, lateral leads...T <-0.10mV, I aVL V5 V6 narrow complex tachycardia, baseline artifact, consider sinus tach v afib
[2023-12-24] MEDS: Albuterol/Ipratropium 3 ML UPD VIAL 9 ML UPD (15:51)
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
[2023-12-24 16:02] LABS: Abs Immature Grans 0.06 10^3/uL (0.0-0.06); Absolute Basophil Count 0.05 10^3/uL (0.0-0.2); Absolute Lymphocyte Count 1.67 10^3/uL (1.2-3.4); Basophils % 0.4 %; Eosinophils % 2.6 %; HCT 34.4 % (36.0-46.0); HGB 10.7 g/dL (11.2-15.7); Immature Grans % 0.5 %; Lymphocytes % 14.4 %; MCH 25.4 pg (27.0-33.0); MCHC 31.1 % (32.0-36.0); MCV 82 fL (80-95); MPV 9.5 fL (8.0-11.0); Monocytes % 9.6 %; Neutrophils % 72.5 %; Platelet Count 309 10^3/uL (130-400); RBC 4.22 10^6/uL (3.93-5.22); RDW 15.7 % (11.7-14.6); RDW-SD 46.5 fL; WBC 11.61 10^3/uL (4.4-10.8)
[2023-12-24 16:03] LABS: BE (Venous) -3 mmol/L (-2-3); HCO3 (Venous) 23 mmol/L (23-28); O2 Sat (Venous) 66 %; TCO2 (Venous) 21 mmol/L (24-29); pCO2 (Venous) 41 mmHg (41-51); pH (Venous) 7.36 (7.31-7.41); pO2 (Venous) 39 mmHg
--- NOTE | 2023-12-24 16:05 | DI.RAD_ITS ---
Exam(s) XR PORTABLE CHEST AP EXAM: XR PORTABLE CHEST AP CLINICAL HISTORY: diminshed L lung, wheezing R lung TECHNIQUE: 2D digital imaging was performed. COMPARISON: CT CT CHEST WO from 12/02/2022 FINDINGS: Exam limited by under penetration. Overlying monitoring leads. LUNGS: Clear. No pleural abnormality seen. HEART: Normal size. AORTA: Normal diameter. BONES: Unremarkable for age. Soft tissues: Unremarkable. IMPRESSION: No acute findings. DATA REPOSITORY: RADIATION DOSE DELIVERED:
[2023-12-24 16:07] LABS: Absolute Monocyte Count 1.11 10^3/uL (0.1-0.8); Absolute Neutrophil Count 8.42 10^3/uL (1.2-6.7); Lactate 3.7 mmol/L (0.6-1.4)
[2023-12-24] MEDS: CEFEPIME 2 GM in Normal Saline 100 ML IVPB (16:13)
[2023-12-24] MEDS: methylPREDNISolone SUCC 125 MG VIAL IVP (16:21)
[2023-12-24] MEDS: Ketorolac 15 MG/ML VIAL IVP (16:21)
[2023-12-24] MEDS: MAGNESIUM SULFATE 1 GM/100 ML BAG IV_INF (16:21)
[2023-12-24 16:28] LABS: ALT 28 U/L (14-59); AST 34 U/L (15-37); Albumin 2.9 g/dL (3.4-5.0); Alkaline Phosphatase 66 U/L (46-116); Anion Gap 13.6 mmol/L (3-11); BUN 22 mg/dL (7-18); Bilirubin, Total 0.42 mg/dL (0.2-1.0); CO2 23.4 mmol/L (21.0-32.0); CREATININE 1.6 mg/dL (0.55-1.02); Chloride 101 mmol/L (98-107); Estimated GFR 35.57 (mL/min/1.73m2); Glucose 214 mg/dL (74-106); Magnesium 1.6 mg/dL (1.8-2.4); NT-proBNP 4305 pg/mL (<300); Potassium 4.2 mmol/L (3.5-5.1); Sodium 138 mmol/L (136-145); Total Protein 7.5 g/dL (6.4-8.2)
[2023-12-24 16:30] LABS: Troponin I 997 ng/L (<or=51)
[2023-12-24] MEDS: Normal Saline 500 ML IV ×2 (16:30→17:30)
--- NOTE | 2023-12-24 16:30 | DI.CT_ITS ---
Exam(s) CT CHEST PE CTA EXAM: CT CHEST PE CTA CLINICAL HISTORY: elevated trop, BNP, sudden SOB, hypoxia. TECHNIQUE: Imaging Protocol: Axial CT angiography was performed with multi-slice acquisition and mu lti-planar reconstructions as well as axial, coronal and sagittal MIP reconstructions. CONTRAST MATERIAL: Intravenous: Omnipaque 350 Contrast volume:100 ml COMPARISON: CT CT CHEST WO from 12/02/2022 FINDINGS: Pulmonary Arteries: Bilateral upper and lower lobe pulmonary emboli. The largest embolus is in the r ight main pulmonary artery extending into peripheral branches. Mediastinum and Anette: No dominant adenopathy or fluid collection. Pulmonary parenchyma: No consolidation or dominant measurable mass. Pleura: No effusion or pneumothorax. Heart: The heart is not dilated. Right heart strain is evident. No coronary artery calcifications a re seen. Aorta: Thoracic aorta non-dilated. No dissection. Upper abdomen: No acute findings. Bones: Unremarkable for age. Tubes, Catheters, and Lines: None Soft tissues: Unremarkable. IMPRESSION: Bilateral upper lower lobe pulmonary emboli, greatest involving the right lower lobe. Findings called to Cb Valdes of the emergency department. RADIATION DOSE DELIVERED: Total DLP DATA REPOSITORY: All CT scans at this facility are submitted to the National Radiology Data Registry (NRDR) Dose Index Registry (DIR) with the [employer] (A[employer]). RADIATION OPTIMIZATION: All CT scans at this facility use at least one of these dose optimization te chniques: automated exposure control; mA and/or kV adjustment per patient size (includes targeted exa ms where dose is matched to clinical indication); or iterative reconstruction.
[2023-12-24 16:51] LABS: Procalcitonin 0.1 ng/mL
[2023-12-24] MEDS: VANCOMYCIN/WATER (PEG) 1.75 GM/350 ML BAG IV (16:58)
[2023-12-24] MEDS: Normal Saline - Diluent 50 ML VIAL IJ (17:00)
[2023-12-24] MEDS: Omnipaque 350 MG/ML 100 ML BTL IJ (17:01)
[2023-12-24] MEDS: Heparin in 0.45% NaCl 25,000 UNIT/250 ML BAG 16.5 UNIT IVINF (17:28)
[2023-12-24 17:29] LABS: Troponin I 971 ng/L (<or=51)
--- NOTE | 2023-12-24 18:57 | NUR.NOTE ---
Nursing Note: report given to [facility] RN [place]
== END 2023-12-24 19:01 | disposition short-term general hospital (02) ==
PROVIDERS: Emergency Provider Physician Assistant; PCP Student in an Organized Health Care Education/Training Program
DX: I26.99 Other pulmonary embolism without acute cor pulmonale (principal); K21.9 Gastro-esophageal reflux disease without esophagitis; R06.02 Shortness of breath; I10 Essential (primary) hypertension; Z87.09 Personal history of other diseases of the respiratory system; F17.210 Nicotine dependence, cigarettes, uncomplicated
CPT/HCPCS: 71275; 80053; 82805; 84145; 87040; 87637; 93005; 94640; 96365; 96366; 96367; 96368; 96375; 99291; 71045; 83605; 83735; 83880; 84484; 85025; 85730; 93010; J0131; J0692; J1644; J1885; J2919; J3372; J3475; J3490; J7620

== ENCOUNTER 2024-03-08 15:14 | Observation (INO) | payer MEDICARE, MEDICAID, SELFPAY ==
[2024-03-08] VITALS (29 sets, daily range): BP systolic 100–176; BP diastolic 61–106; PULSE 74–100; RESP 11–32; TEMP 36.8; O2SAT 88–100
--- NOTE | 2024-03-08 15:15 | DI.CT_ITS ---
Exam(s) CT HEAD CERVICAL SPINE WO EXAM: CT HEAD CERVICAL SPINE WO CLINICAL HISTORY: fall on thinners last night. TECHNIQUE: Imaging Protocol: Axial computed tomography images with coronal and sagittal reformatted images were created and reviewed COMPARISON: US US THYROID from 08/14/2019 US US THYROID from 09/17/2022 FINDINGS: Head CT Ventricles and Extra axial spaces: Normal in size and morphology for the patient's age. Hemorrhage: None. Cerebral parenchyma: No evidence of mass or acute infarct. Mild atrophy. White matter changes consi stent with microvascular disease. Midline shift: None. Brainstem/Cerebellum: Normal. Calvarium: Normal. Visualized Paranasal sinuses/Mastoids: Mild mucosal thickening. Soft tissues: Unremarkable. Cervical Spine CT BONES: Vertebral body heights are maintained. Alignment is normal. There is no evidence of acute frac ture. Degenerative disc changes and facet degenerative changes are seen . SOFT TISSUES: No paraspinal hematoma. The airway appears intact. No pneumothorax is seen at the lung apices. Calcified right thyroid nodules again noted. Previously evaluated by ultrasound. IMPRESSION: Head CT: No acute abnormality. C-spine CT: Degenerative changes, no acute abnormality. RADIATION DOSE DELIVERED: 1,277.01mGy.cm Total DLP DATA REPOSITORY: All CT scans at this facility are submitted to the National Radiology Data Registry (NRDR) Dose Index Registry (DIR) with the [employer] ([employer]). RADIATION OPTIMIZATION: All CT scans at this facility use at least one of these dose optimization te chniques: automated exposure control; mA and/or kV adjustment per patient size (includes targeted exa ms where dose is matched to clinical indication); or iterative reconstruction.
--- NOTE | 2024-03-08 15:15 | DI.CT_ITS ---
Exam(s) CT LOWER EXTREMITY RT WO EXAM: CT LOWER EXTREMITY RT WO CLINICAL HISTORY: R leg pain- knee pain. TECHNIQUE: Imaging Protocol: Axial computed tomography images with coronal and sagittal reformatted images were created and reviewed. CONTRAST MATERIAL: Noncontrast COMPARISON: No exams were available for comparison FINDINGS: Bones: There is no evidence of fracture or dislocation. No cellulitic or osteomyelitic changes are identified. No lytic or sclerotic lesions are identified. The bones appear osteoporotic. There is an enthesoph yte at the upper pole of the patella. Joints: There is lateral patellofemoral significant joint space narrowing. There is minimal periart icular spurring. Soft Tissues: Anterior soft tissue swelling. No a drainable collection or foreign body. IMPRESSION: No evidence of fracture. Anterior soft tissue swelling. RADIATION DOSE DELIVERED: 152.58mGy.cm Total DLP DATA REPOSITORY: All CT scans at this facility are submitted to the National Radiology Data Registry (NRDR) Dose Index Registry (DIR) with the [employer] ([employer]). RADIATION OPTIMIZATION: All CT scans at this facility use at least one of these dose optimization te chniques: automated exposure control; mA and/or kV adjustment per patient size (includes targeted exa ms where dose is matched to clinical indication); or iterative reconstruction.
--- NOTE | 2024-03-08 15:23 | ED.GENADUL_ITS ---
Discharge Plan Disposition Patient Disposition: Admit to [facility] Condition: Stable Discharge Details Clinical Impression: Rhabdomyolysis Primary Care Provider: Nora Nicholas ED Provider: Cb Valdes Home Meds and New Rx's Prescriptions: No Action calcium-vitamin D3-vitamin K 500-100-40 mg-unit-mcg tablet,chewable 2 tab PO DAILY Hair,Skin and Nails Tablet 1 tab PO DAILY bupropion HCl [Wellbutrin XL] 150 mg tablet extended release 24 hr 150 mg PO QAM Qty: 90 3RF Rx Instructions: take 150 mg with 300 mg to total 450mg of Wellbutrin 450 mg daily per note dated 04/03/20 [facility] bupropion HCl 300 mg tablet extended release 24 hr 300 mg PO QAM MDD 450 mg Qty: 90 3RF Rx Instructions: Continuing Rx from [facility], 450mg in total pregabalin [Lyrica] 25 mg capsule 25 mg PO TID PRN (Reason: pain, with slow trial USING BOTTLE vs BUBBLE PACKS) Qty: 90 1RF Rx Instructions: Trial 1 capsule in the morning x2 days, then 2 caps x 1 week, then add third capsule @ midday (slow titration; ok with MEY qHS) trazodone 50 mg tablet 50 mg PO QHS quetiapine 100 mg tablet 100 mg PO QHS [id number]-rq-yywh-FA-Ca carb-vit K 18 mg iron-400 mcg-500 mg tablet 1 tab PO DAILY duloxetine 20 mg capsule,delayed release(DR/EC) 40 mg PO DAILY Qty: 180 3RF Rx Instructions: per [facility] 01/17/20 (DME) hearing aids 0 .Route .MEDSUPPLY Qty: 1 0RF Rx Instructions: As directed; MEDICALLY CLEARED FOR HEARING AIDS gabapentin 300 mg capsule 600 mg PO QHS Qty: 180 3RF Rx Instructions: Trial inc dose qHS aspirin 81 mg tablet,chewable 81 mg PO DAILY atorvastatin 40 mg tablet 40 mg PO DAILY melatonin 3 mg tablet 3 mg PO HS PRN nitroglycerin 0.4 mg tablet, sublingual 0.4 mg sublingual Q5M PRN Rx Instructions: do not exceed 3 doses per episode polyethylene glycol 3350 [Miralax] 17 gram powder in packet 17 g PO DAILY PRN omeprazole 20 mg capsule,delayed release(DR/EC) See Rx Instructions .ROUTE .COMPLEX Qty: 28 5RF Dose Instruction: TAKE 1 CAPSULE BY MOUTH DAILY Rx Instructions: TAKE 1 CAPSULE BY MOUTH DAILY lisinopril 10 mg tablet See Rx Instructions .ROUTE .COMPLEX Qty: 28 5RF Dose Instruction: TAKE 1 TABLET BY MOUTH DAILY Rx Instructions: TAKE 1 TABLET BY MOUTH DAILY ibuprofen 600 mg tablet See Rx Instructions .ROUTE .COMPLEX Qty: 28 5RF Dose Instruction: TAKE 1 TABLET BY MOUTH DAILY AT 5:35 TRIAL FOR ARTHRITIS TAKE WITH FOOD PLACE IN PACKS PLEASE Rx Instructions: TAKE 1 TABLET BY MOUTH DAILY AT 5:35 TRIAL FOR ARTHRITIS TAKE WITH FOOD PLACE IN PACKS PLEASE apixaban 5 mg tablet 5 mg PO BID Rx Instructions: 02/29/24 [facility] Cardiology note, Apixaban 5mg, 1 tab PO BID, for 90 days.HE After loading with 2 tablets BID for 6 days HPI General Date/Time Provider Initiated Documentation: 03/08/24 15:23 . HPI Narrative: 64 year-old female presents to ED today by EMS with a chief complaint of fall last night, injury to R knee, could not get her up- he brought her pillows on the floor and blankets, called EMS finally this afternoon, nearly 24hrs down on floor. Patient endorses significant intoxication last night. Quality described as R knee pain, denies L leg pain, denies headstrike- is on blood thinners, denies abdominal pain, nausea, vomiting, fever- but does have an oxygen requirement when brought in by EMS - was 88% on RA, now 96% on 2L, no radiation to chest pain, palpitations. Severity is described as moderate to R knee. Palliating factors include nothing specific attempted. Provoking factors include attempting to raise her leg. Events leading up to the incident/Associated Symptoms: Patient has complex medical history with anxiety and depression, fibromyalgia, smoking history, history of hepatitis C, gastric bypass, PAD, history of pulmonary embolism on Eliquis, balance problems. Patient is anticoagulated. Related Data Home Medications ?Medication ?Instructions ?Recorded ?Confirmed mbbfrjji-isv-gogh-FA-Ca carb-vit K 1 tab PO DAILY 12/24/20 03/08/24 18 mg iron-400 mcg-500 mg tablet duloxetine 20 mg capsule,delayed 40 mg (2 x 20 mg) PO DAILY #180 04/20/21 03/08/24 release caps hearing aids #1 ea 12/19/21 03/08/24 bupropion HCl 150 mg 24 hr tablet, 150 mg PO QAM #90 tabs 02/26/23 03/08/24 extended release (Wellbutrin XL) bupropion HCl 300 mg 24 hr tablet, 300 mg PO QAM #90 tabs 02/26/23 03/08/24 extended release calcium 500 mg-vitamin D3 100 2 tab PO DAILY 02/26/23 03/08/24 unit-vitamin K 40 mcg chewable tablet multivitamin with minerals 1 tab PO DAILY 02/26/23 03/08/24 (Hair,Skin and Nails tablet) gabapentin 300 mg capsule 600 mg (2 x 300 mg) PO QHS #180 10/19/23 03/08/24 caps aspirin 81 mg chewable tablet 81 mg PO DAILY 12/31/23 03/08/24 atorvastatin 40 mg tablet 40 mg PO DAILY 12/31/23 03/08/24 melatonin 3 mg tablet 3 mg PO HS PRN 12/31/23 03/08/24 nitroglycerin 0.4 mg sublingual 0.4 mg sublingual Q5M PRN 12/31/23 03/08/24 tablet polyethylene glycol 3350 17 gram 17 g PO DAILY PRN 12/31/23 03/08/24 oral powder packet (Miralax) ibuprofen 600 mg tablet See Rx Instructions .Route 01/12/24 03/08/24 .COMPLEX #28 tabs lisinopril 10 mg tablet See Rx Instructions .Route 01/12/24 03/08/24 .COMPLEX #28 tabs omeprazole 20 mg capsule,delayed See Rx Instructions .Route 01/12/24 03/08/24 release .COMPLEX #28 caps quetiapine 100 mg tablet 100 mg PO QHS 01/14/24 03/08/24 trazodone 50 mg tablet 50 mg PO QHS 01/14/24 03/08/24 pregabalin 25 mg capsule (Lyrica) 25 mg PO TID PRN pain, with slow 02/23/24 03/08/24 trial USING BOTTLE vs BUBBLE PACKS #90 caps apixaban 5 mg tablet 5 mg PO BID 03/03/24 03/08/24 Previous Rx's ?Medication ?Instructions ?Recorded duloxetine 20 mg capsule,delayed 40 mg (2 x 20 mg) PO DAILY #180 04/20/21 release caps hearing aids #1 ea 12/19/21 bupropion HCl 150 mg 24 hr tablet, 150 mg PO QAM #90 tabs 02/26/23 extended release (Wellbutrin XL) bupropion HCl 300 mg 24 hr tablet, 300 mg PO QAM #90 tabs 02/26/23 extended release gabapentin 300 mg capsule 600 mg (2 x 300 mg) PO QHS #180 10/19/23 caps ibuprofen 600 mg tablet See Rx Instructions .Route 01/12/24 .COMPLEX #28 tabs lisinopril 10 mg tablet See Rx Instructions .Route 01/12/24 .COMPLEX #28 tabs omeprazole 20 mg capsule,delayed See Rx Instructions .Route 01/12/24 release .COMPLEX #28 caps pregabalin 25 mg capsule (Lyrica) 25 mg PO TID PRN pain, with slow 02/23/24 trial USING BOTTLE vs BUBBLE PACKS #90 caps Allergies Allergy/AdvReac Type Severity Reaction Status Date / Time No Known Allergies Allergy Verified 03/08/24 15:24 General Stated Complaint: Fall/Non TraumaCriteria CHRISTELLE: 3 Review of Systems All systems reviewed & are unremarkable except as noted in HPI and below Exam Narrative Exam Narrative: GENERAL APPEARANCE: Malnourished, dehydrated, non-toxic, awake and alert, atraumatic, no acute distress. SKIN: Warm, pale, dry, intact, without rashes/lesions/ulcerations. HEAD: Normocephalic, atraumatic, normal hair distribution for gender/age. EYES: Normal conjunctiva, no exudates on lids/lashes. ENT: Nares patent, no circumoral cyanosis, no facial swelling NECK: Supple, trachea midline, painless cervical ROM. LUNGS/CHEST: Lungs CTA bilaterally- no rhonchi/rales/wheezes diffusely, non- labored respirations, normal A/P diameter, symmetrical expansion, no chest wall deformity HEART (CV/PV): Regular rate and rhythm without murmur, no peripheral edema, no JVD. ABDOMEN: Soft, non-distended, no guarding, no tenderness or pulsatile masses. MSK: Normal ROM, no swelling/deformity to bilateral UEs or LEs, moving all extremities without weakness, no cyanosis, spine midline without tenderness, normal curvature, tenderness at R knee without crepitus, mild erythema NEURO: Mental Status AAOx4 - alert to person, place, time, events but intoxicated slightly No facial droop, no forehead involvement. Motor: No focal weakness - strength 5/5 in bilateral UEs and LEs, proximal and distal, symmetric. Sensory: sensation intact to light touch globally.- intact to R lower leg after recheck once patient was warm Gait normal: patient ambulated without ataxia into ED room. PSYCH: euthymic, cooperative, pleasant, appropriate speech Course Vital Signs Vital signs: Vital Signs Temperature 36.8 C 03/08/24 15:15 Pulse 90 03/08/24 15:15 Respiratory Rate 16 03/08/24 15:15 Blood Pressure 102/61 03/08/24 15:15 Pulse Oximetry 88 L 03/08/24 15:15 Temperature 36.8 C 03/08/24 15:15 Pulse 90 03/08/24 15:15 Respiratory Rate 16 03/08/24 15:15 Blood Pressure 102/61 03/08/24 15:15 Pulse Oximetry 96 03/08/24 15:22 Oxygen Delivery Method Nasal Cannula 03/08/24 15:22 Oxygen Flow Rate 2 03/08/24 15:22 Pain Level 0 03/08/24 15:15 Comment pt placed on 02 2l/min, o2 increased to 96 03/08/24 15:15 Medical Decision Making This dictation utilizes [id number] dictation software and may contain unedited grammatical errors. 64 year-old female presents to ED today by EMS with a chief complaint of fall last night, injury to R knee, could not get her up- he brought her pillows on the floor and blankets, called EMS finally this afternoon, nearly 24hrs down on floor. Patient endorses significant intoxication last night. Quality described as R knee pain, denies L leg pain, denies headstrike- is on blood thinners, denies abdominal pain, nausea, vomiting, fever- but does have an oxygen requirement when brought in by EMS - was 88% on RA, now 96% on 2L, no radiation to chest pain, palpitations. Severity is described as moderate to R knee. Palliating factors include nothing specific attempted. Provoking factors include attempting to raise her leg. Events leading up to the incident/Associated Symptoms: Patient has complex medical history with anxiety and depression, fibromyalgia, smoking history, history of hepatitis C, gastric bypass, PAD, history of pulmonary embolism on Eliquis, balance problems. Family and social history: Endorses EtOH use, denies illicit substance use. Pertinent exam findings / vital signs include right knee tenderness to palpation with some swelling and ecchymosis/redness, benign abdomen, no rales at bases of lungs, neuro intact but endorsing sensory deficits right lower leg, intoxicated. Differential / pathologies of concern include trauma, rhabdomyolysis, acute renal failure, ACS, ICH, acute renal failure, electrolyte abnormalities, intoxication. Diagnostic studies of: -CBC, CMP, alcohol level, CK, serial troponins, TSH, ammonia, lipase, magnesium, lactate, urinalysis, blood cultures, UDS, COVID/flu/RSV PCR, XR portable chest to assess prior elevated BNP prior to fluid administration, CT head, cervical, thoracic, lumbar spine, CT chest abdomen pelvis without contrast, CT right knee. -initial lactate 9.5 -CK elevated to 1400 -Initial troponin 80, repeat troponin 75, do not suspect ACS likely renal source -TSH within normal limits -Alcohol level 71.9 -Anion gap is 21.7 -Mildly elevated creatinine to 1.4 -Magnesium within normal limits -Mild anemia hemoglobin 10.5 at or near baseline -Chest x-ray shows no pulmonary edema -CT shows no intracranial bleeding, no cervical or thoracic or lumbar vertebral fractures, possible right lung base infiltrate and pleural effusion-will defer to hospitalist decision to start antibiotics here, no fracture to knee -added EKG after admission as patient did have slight bump in trop, but likely renal cause Interventions of: -IVF NS 1L @ 250/hr. ED Course/Assessment/Plan: 64-year-old female presents by EMS for a fall while intoxicated last night, her could not help get her up off the floor so he did bring her pillows and blankets to have her stay in place, he called the ambulance this afternoon making it almost 24 hours on the ground, she states she did urinate this morning likely on the floor. She has pale presentation and I suspect she is very dry she has a new oxygen requirement with smoking history without overt diagnosis of COPD, has a small right pleural effusion that could be contributing to this, but pneumonia is not definitively ruled out, the patient has prior BNP readings of 1300 indicating possible CHF I do not want to flood the patient with aggressive fluid boluses, she has a significant anion gap of 21, I discussed the case with hospitalist Dr. Cunningham accepts the patient for floor level of care for rhabdomyolysis @ 1900. Findings not consistent with fracture, NV compromise, sepsis. Disposition of Rhabdomyolysis. Patient verbalized understanding of the plan and return to ED criteria and engaged in shared decision making. Medical Records Medical records reviewed: Yes I reviewed the patient's medical records. Imaging Data Radiologic Study: Attestation: I personally reviewed and interpreted this imaging study as follows: Imaging: X-Ray Radiologist's impression: Exam: Portable XR Chest Exam date and time: 03/08/2024 5:01 PM Age: 64 years old Clinical indication: Other: Pulmonary edema TECHNIQUE: Imaging protocol: Portable radiologic exam of the chest. Views: 1 view. COMPARISON: 1. CT CHEST/ABD/PEL W 03/08/2024 4:[address] CHEST PE CTA 12/24/2023 5:06 PM 3. CR XR PORTABLE CHEST AP 12/24/2023 4:[address] CHEST WO 12/02/2022 1:42 PM FINDINGS: Lungs: Unremarkable. No consolidation. Pleural spaces: Unremarkable. No pleural effusion. No pneumothorax. Heart/Mediastinum: Unremarkable. No cardiomegaly. Bones/joints: Unremarkable. IMPRESSION: No acute findings. Dictated and Authenticated by: Giovanni Hung MD. Radiologic Study #2: Attestation: I personally reviewed and interpreted this imaging study as follows: Imaging: CT Scan Radiologist's impression: Exam: CT Head Without Contrast Exam date and time: 03/08/2024 5:04 PM Age: 64 years old Clinical indication: Injury or trauma; Blunt trauma (contusions or hematomas); Consciousness not specified; Injury details: Fall on thinners TECHNIQUE: Imaging protocol: Computed tomography of the head without contrast. Radiation optimization: All CT scans at this facility use at least one of these dose optimization techniques: automated exposure control; mA and/or kV adjustment per patient size (includes targeted exams where dose is matched to clinical indication); or iterative reconstruction. COMPARISON: US THYROID 09/17/2022 1:01 PM FINDINGS: Brain: Cerebral volume loss noted. Scattered areas of decreased attenuation in the deep periventricular white matter consistent with small vessel ischemic change. No evidence for acute intracranial hemorrhage. Cerebral ventricles: No ventriculomegaly. Paranasal sinuses: Mild mucoperiosteal thickening right maxillary sinus and ethmoid air cells. Mastoid air cells: Visualized mastoid air cells are well aerated. Bones: Unremarkable. No acute fracture. Soft tissues: Unremarkable. IMPRESSION: Senescent changes noted. No acute intracranial abnormality. PROCEDURE INFORMATION: Exam: CT Cervical Spine Without Contrast Exam date and time: 03/08/2024 5:04 PM Age: 64 years old Clinical indication: Injury or trauma; Blunt trauma (contusions or hematomas); Consciousness not specified; Injury details: Fall on thinners TECHNIQUE: Imaging protocol: Computed tomography of the cervical spine without contrast. Radiation optimization: All CT scans at this facility use at least one of these dose optimization techniques: automated exposure control; mA and/or kV adjustment per patient size (includes targeted exams where dose is matched to clinical indication); or iterative reconstruction. COMPARISON: CT CHEST/ABD/PEL W 03/08/2024 4:25 PM FINDINGS: Bones: No acute fracture. Normal alignment. No significant disc bulge or herniation. No severe spinal canal stenosis. No significant neural foraminal narrowing. Lungs: Lung apices are normal. Thyroid: There are coarse dystrophic calcifications associated with the right thyroid lobe. There are dystrophic calcifications above the level of the right thyroid gland, possibly within lymph node. Soft tissues: Unremarkable. IMPRESSION: 1. No evidence for acute posttraumatic abnormality. 2. Dystrophic calcifications associated with right neck mass, likely thyroid origin with the adjacent thyroid calcifications. Recommend follow-up. Dictated and Authenticated by: Emi Gonzalez MD. Radiologic Study #3: Attestation: I personally reviewed and interpreted this imaging study as follows: Imaging: CT Scan Radiologist's impression: Exam: CT Thoracic Spine Without Contrast Exam date and time: 03/08/2024 5:07 PM Age: 64 years old Clinical indication: Injury or trauma; Blunt trauma (contusions or hematomas); Injury details: Fall on thinners TECHNIQUE: Imaging protocol: Computed tomography of the thoracic spine without contrast. Radiation optimization: All CT scans at this facility use at least one of these dose optimization techniques: automated exposure control; mA and/or kV adjustment per patient size (includes targeted exams where dose is matched to clinical indication); or iterative reconstruction. COMPARISON: CR XR THORACIC SPINE COMPLETE 01/06/2021 2:53 PM FINDINGS: Bones/joints: There is a normal kyphosis. The vertebral bodies maintain their height throughout. The pedicles are intact. There are degenerative changes with anterior osteophytes at multiple levels. There is disc space narrowing at T5-T6. Soft tissues: Unremarkable. IMPRESSION: Degenerative changes and disc space narrowing as above. PROCEDURE INFORMATION: Exam: CT Lumbar Spine Without Contrast Exam date and time: 03/08/2024 5:07 PM Age: 64 years old Clinical indication: Injury or trauma; Blunt trauma (contusions or hematomas); Injury details: Fall on thinners TECHNIQUE: Imaging protocol: Computed tomography of the lumbar spine without contrast. Radiation optimization: All CT scans at this facility use at least one of these dose optimization techniques: automated exposure control; mA and/or kV adjustment per patient size (includes targeted exams where dose is matched to clinical indication); or iterative reconstruction. COMPARISON: CR XR LUMBAR SPINE COMP W FLEX/EX 01/06/2021 2:56 PM FINDINGS: Bones/joints: There is a normal lordosis of the lumbar spine. The vertebral bodies maintain their height throughout. The pedicles are intact. The disc spaces are preserved. There are slight degenerative changes with small anterior osteophytes at multiple levels. Soft tissues: Unremarkable. IMPRESSION: Slight degenerative changes as above. Dictated and Authenticated by: Giovanni Hung MD. Radiologic Study #4: Attestation: I personally reviewed and interpreted this imaging study as follows: Imaging: CT Scan Radiologist's impression: Exam: CT Chest Without Contrast; Diagnostic Exam date and time: 03/08/2024 5:07 PM Age: 64 years old Clinical indication: Injury or trauma; Fall; Blunt; Generalized TECHNIQUE: Imaging protocol: Diagnostic computed tomography of the chest without contrast. Radiation optimization: All CT scans at this facility use at least one of these dose optimization techniques: automated exposure control; mA and/or kV adjustment per patient size (includes targeted exams where dose is matched to clinical indication); or iterative reconstruction. COMPARISON: CT CHEST/ABD/PEL W 03/08/2024 4:25 PM FINDINGS: Thyroid: There are large partially calcified right thyroid nodules. Lungs: The tracheobronchial tree is patent bilaterally. See below. Pleural spaces: There is a small right pleural effusion. There are atelectatic changes at the right lung base. Small underlying right lower lobe infiltrate is not excluded. Heart: The heart and pericardium are within normal limits. Lymph nodes: No enlarged lymph nodes. Vasculature: Unremarkable. No aortic aneurysm. Bones/joints: There are degenerative changes of the thoracic spine. Soft tissues: Unremarkable. IMPRESSION: 1. Small right pleural effusion. 2. Atelectatic changes at the right lung base. A small underlying infiltrate is not totally excluded. Clinical correlation is recommended. 3. Right thyroid nodules. These have been worked up on prior studies please see prior report of the thyroid ultrasound dated 01/06/2021. PROCEDURE INFORMATION: Exam: CT Abdomen And Pelvis Without Contrast Exam date and time: 03/08/2024 5:07 PM Age: 64 years old Clinical indication: Injury or trauma; Fall; Blunt; Generalized TECHNIQUE: Imaging protocol: Computed tomography of the abdomen and pelvis without contrast. Radiation optimization: All CT scans at this facility use at least one of these dose optimization techniques: automated exposure control; mA and/or kV adjustment per patient size (includes targeted exams where dose is matched to clinical indication); or iterative reconstruction. COMPARISON: CT CHEST/ABD/PEL W 03/08/2024 4:25 PM FINDINGS: Liver: The liver is within normal limits. Gallbladder and biliary ducts: The patient is status post cholecystectomy. Pancreas: The pancreas is within normal limits. Spleen: The spleen is within normal limits. Adrenal glands: The adrenal glands are unremarkable. Kidneys and ureters: The kidneys are within normal limits. Stomach and bowel: The patient is status post gastric bypass surgery. Appendix: No evidence of appendicitis. Intraperitoneal space: Unremarkable. No free air. No significant fluid collection. Vasculature: There are arteriosclerotic changes of the aorta. Lymph nodes: No enlarged lymph nodes. Urinary bladder: The urinary bladder is somewhat distended with urine. Clinical correlation is recommended. Reproductive: The patient is status post hysterectomy. Bones/joints: There are degenerative changes of the lumbar spine. Soft tissues: There is posterior subcutaneous edema. IMPRESSION: 1. Status post cholecystectomy. Status post hysterectomy. Status post gastric bypass surgery. 2. Distended urinary bladder. Clinical correlation is recommended. Dictated and Authenticated by: Giovanni Hung MD. Radiologic Study #5: Attestation: I personally reviewed and interpreted this imaging study as follows: Imaging: CT Scan Radiologist's impression: Exam: CT Right Lower Extremity, Knee Exam date and time: 03/08/2024 5:19 PM Age: 64 years old Clinical indication: Other: RT knee pain, fall TECHNIQUE: Imaging protocol: CT of the right lower extremity without contrast was performed. Exam focused on the knee. COMPARISON: CR XR LUMBAR SPINE COMP W FLEX/EX 01/06/2021 2:56 PM FINDINGS: Bones/joints: There is no suprapatellar effusion. There is no evidence of a fracture or a dislocation. There are small cystic changes within the distal femur and proximal tibia. There is osteopenia. Soft tissues: There is a quadriceps tendon spur. There is soft tissue edema. IMPRESSION: No evidence of a fracture or dislocation. Osseous findings as above. Dictated and Authenticated by: Giovanni Hung MD. Lab Data Lab results reviewed: Yes I reviewed the patient's lab results. Quality:SDOH Health Related Social Needs: No Data to Display PFSH All Active Problems (Updated 03/08/24 @ 18:06 by ELSA Castillo) Rhabdomyolysis (Acute) Arthralgia (Acute) Atherosclerosis of lower extremity with claudication (Acute) from [facility] [facility] Vascular surgery 01/26/24 note. Repeat [facility] in 6 months per note.HE Research study patient (Acute ~01/21/24) [facility] Cardiology note.HE PAD (peripheral artery disease) (Acute) mild dz ID @ rt toe (Hx purplish discol in hosp).. Vasc FU planned, 01/2024 [ ] Hx pulmonary embolism (Acute) [facility] ED, with xfer to [facility] (12/24 - 12/29), started on Eliquis (with PAD and Heme eval scheduled) Weight gain (Acute) with Hx bariatric surgery (unable to return for bariatric surgery team support.. s[place]p Surg [place] another [place] and difficult to get to [facility]) Intertriginous candidiasis (Acute) Candidal skin infection (Acute) Skin rash (Acute) Fracture of scaphoid bone of left wrist with malunion (Acute) per 02/24/23 XR Flexor tenosynovitis of thumb (Acute) Bilateral wrist pain (Acute) XR shows b/l DJD; old lft Fx (scaphoid); Hx b/l wrist pain (2017 XR, but no note, and no Fx seen) Lung nodule seen on imaging study (Acute) per lung ca screening, 06/2022, 6 mo FU (5 mm ground-glass nodule in the lateral aspect of the right upper lobe. Lung RADS Cat 3/Probably Benign. Balance problem (Acute) Hx falls, near-syncope .. with some improvements as she doesn't need to put out her hands for balance anymore.. Long Hx imbalance and syncopal episodes (black-outs in 20s). Chronic pain of right ankle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
[2024-03-08 15:39] LABS: Lactate 9.5 mmol/L (0.6-1.4)
[2024-03-08 15:44] LABS: RBC 3.99 10^6/uL (3.93-5.22); WBC 7.83 10^3/uL (4.4-10.8)
[2024-03-08 15:45] LABS: Absolute Basophil Count 0.05 10^3/uL (0.0-0.2); Absolute Eosinophil Count 0.06 10^3/uL (0.0-0.7); Absolute Lymphocyte Count 1.24 10^3/uL (1.2-3.4); Absolute Monocyte Count 0.52 10^3/uL (0.1-0.8); Absolute Neutrophil Count 5.94 10^3/uL (1.2-6.7); Basophils % 0.6 %; Eosinophils % 0.8 %; HCT 33.3 % (36.0-46.0); HGB 10.5 g/dL (11.2-15.7); Lymphocytes % 15.8 %; MCH 26.3 pg (27.0-33.0); MCHC 31.5 % (32.0-36.0); MCV 84 fL (80-95); MPV 9.7 fL (8.0-11.0); Monocytes % 6.6 %; Neutrophils % 75.8 %; Platelet Count 370 10^3/uL (130-400); RDW 15.9 % (11.7-14.6)
--- NOTE | 2024-03-08 15:45 | DI.RAD_ITS ---
Exam(s) XR PORTABLE CHEST AP EXAM: XR PORTABLE CHEST AP CLINICAL HISTORY: r/o pulm edema TECHNIQUE: 2D digital imaging was performed. COMPARISON: CR XR PORTABLE CHEST AP from 12/24/[address] CHEST PE CTA from 12/24/2023 FINDINGS: Exam is limited by poor pulmonary inflation and under patent tray clinton at the lung bases. LUNGS: Lung bases not well evaluated due to expiratory changes. No gross focal area of consolidation or pulmonary edema.. No pleural abnormality seen. HEART: Normal size. AORTA: The evaluation limited by rotation. Normal diameter. BONES: Unremarkable for age. Soft tissues: Unremarkable. IMPRESSION: Limited exam. No acute findings. DATA REPOSITORY: RADIATION DOSE DELIVERED:
[2024-03-08 15:46] LABS: Immature Grans % 0.4 %
[2024-03-08 16:16] LABS: Albumin 3.6 g/dL (3.4-5.0); BUN 14 mg/dL (7-18); CREATININE 1.4 mg/dL (0.55-1.02); Calcium 8.8 mg/dL (8.5-10.1); Estimated GFR 41.49 (mL/min/1.73m2); Glucose 114 mg/dL (74-106); Total Protein 7.6 g/dL (6.4-8.2)
[2024-03-08 16:17] LABS: Ammonia 11 umol/L (11-32)
[2024-03-08 16:17] LABS: Bilirubin, Total 0.19 mg/dL (0.2-1.0)
[2024-03-08 16:18] LABS: Alkaline Phosphatase 72 U/L (46-116); Anion Gap 21.7 mmol/L (3-11); CO2 17.3 mmol/L (21.0-32.0); Chloride 103 mmol/L (98-107); Potassium 3.9 mmol/L (3.5-5.1); Sodium 142 mmol/L (136-145)
[2024-03-08 16:19] LABS: ALT 28 U/L (14-59); AST 49 U/L (15-37); Creatine Kinase 1401 U/L (26-192); ETHANOL BLOOD 71.9 mg/dL (<10); Lipase 36 U/L (<78)
[2024-03-08 16:20] LABS: Troponin I 80 ng/L (<or=51)
[2024-03-08] MEDS: Normal Saline 1,000 ML 250 ML IV (16:20)
[2024-03-08 17:06] LABS: Troponin I 75 ng/L (<or=51)
--- NOTE | 2024-03-08 17:20 | DI.CT_ITS ---
Exam(s) CT CHEST/ABD/PEL WO CT THORACIC LUMBAR SPINE REC EXAM: CT CHEST/ABD/PEL WO CLINICAL HISTORY: CT chest/ABD/Pelvis. TECHNIQUE: Imaging Protocol: Axial computed tomography images with coronal and sagittal reformatted images were created and reviewed. Computer aided detection (CAD) was utilized. Images of the thoracic and lumbar spine were reconstructed from the chest abdomen pelvic CT in bone a nd soft tissue algorithm. CONTRAST MATERIAL: Noncontrast Oral: no COMPARISON: CT CT THORACIC LUMBAR SPINE REC from 03/08/2024 FINDINGS: CHEST: Tracheobronchial tree: Patent. Pulmonary parenchyma: Increased densities in the posterior right lower lobe, adjacent to the effusion . Atelectasis versus infiltrate. Minimal dependent changes on the left. Pleura: Small right pleural effusion no pneumothorax. Mediastinum: Within normal limits. Aorta: Thoracic portion non-dilated. Pulmonary arteries: No visible emboli. Heart: No pericardial effusion. Bones: Degenerative changes.. No lytic or blastic lesions.No compression fractures. No rib fracture is identified. Soft tissues: Unremarkable. ABDOMEN and PELVIS: Liver: Normal density. No measurable mass. Gallbladder and biliary tract: Status post cholecystectomy. No biliary dilatation. Pancreas: Normal density, no abnormal calcifications or inflammatory process. Spleen: Normal. Kidneys: Normal size, contour and axis. No radiodense stones. No obstructive uropathy. No suspicious masses seen. Adrenal glands: No masses seen. Aorta: Abdominal portion non-dilated. Lymph nodes: Within normal limits. Soft tissues: Unremarkable. Bladder: Over distended but intact. Bowel: Prior gastric bypass surgery. No obstruction or bowel wall thickening. Appendix normal. No rmal quantity of stool. Peritoneal cavity: No ascites. No focal collection. No mesenteric inflammatory response. No free ai r. Bones: Degenerative changes. No spine or pelvic fracture. Reproductive organs: Within normal limits. IMPRESSION: Chest: Small right pleural effusion and adjacent atelectasis versus infiltrate. No evidence of pneum othorax. No visible rib fracture. Abdomen and pelvis: No acute abnormality. The urinary bladder is over distended. RADIATION DOSE DELIVERED: 514.62mGy.cm Total DLP DATA REPOSITORY: All CT scans at this facility are submitted to the National Radiology Data Registry (NRDR) Dose Index Registry (DIR) with the [employer] (ACR). RADIATION OPTIMIZATION: All CT scans at this facility use at least one of these dose optimization te chniques: automated exposure control; mA and/or kV adjustment per patient size (includes targeted exa ms where dose is matched to clinical indication); or iterative reconstruction.
[2024-03-08 17:22] LABS: COVID-19 PCR Negative (Negative); Influenza A PCR Negative (Negative); Influenza B PCR Negative (Negative); RSV PCR Negative (Negative)
[2024-03-08 17:23] LABS: Source Nasopharynx
--- NOTE | 2024-03-08 17:32 | DI.VRAD_ITS ---
PROCEDURE INFORMATION: Exam: Portable XR Chest Exam date and time: 03/08/2024 5:01 PM Age: 64 years old Clinical indication: Other: Pulmonary edema TECHNIQUE: Imaging protocol: Portable radiologic exam of the chest. Views: 1 view. COMPARISON: 1. CT CHEST/ABD/PEL W 03/08/2024 4:[address] CHEST PE CTA 12/24/2023 5:06 PM 3. CR XR PORTABLE CHEST AP 12/24/2023 4:[address] CHEST WO 12/02/2022 1:42 PM FINDINGS: Lungs: Unremarkable. No consolidation. Pleural spaces: Unremarkable. No pleural effusion. No pneumothorax. Heart/Mediastinum: Unremarkable. No cardiomegaly. Bones/joints: Unremarkable. IMPRESSION: No acute findings. Dictated and Authenticated by: Giovanni Hung MD. Ordering:AKILA Vivar MD
--- NOTE | 2024-03-08 17:44 | DI.VRAD_ITS ---
PROCEDURE INFORMATION: Exam: CT Chest Without Contrast; Diagnostic Exam date and time: 03/08/2024 5:07 PM Age: 64 years old Clinical indication: Injury or trauma; Fall; Blunt; Generalized TECHNIQUE: Imaging protocol: Diagnostic computed tomography of the chest without contrast. Radiation optimization: All CT scans at this facility use at least one of these dose optimization techniques: automated exposure control; mA and/or kV adjustment per patient size (includes targeted exams where dose is matched to clinical indication); or iterative reconstruction. COMPARISON: CT CHEST/ABD/PEL W 03/08/2024 4:25 PM FINDINGS: Thyroid: There are large partially calcified right thyroid nodules. Lungs: The tracheobronchial tree is patent bilaterally. See below. Pleural spaces: There is a small right pleural effusion. There are atelectatic changes at the right lung base. Small underlying right lower lobe infiltrate is not excluded. Heart: The heart and pericardium are within normal limits. Lymph nodes: No enlarged lymph nodes. Vasculature: Unremarkable. No aortic aneurysm. Bones/joints: There are degenerative changes of the thoracic spine. Soft tissues: Unremarkable. IMPRESSION: 1. Small right pleural effusion. 2. Atelectatic changes at the right lung base. A small underlying infiltrate is not totally excluded. Clinical correlation is recommended. 3. Right thyroid nodules. These have been worked up on prior studies please see prior report of the thyroid ultrasound dated 01/06/2021. PROCEDURE INFORMATION: Exam: CT Abdomen And Pelvis Without Contrast Exam date and time: 03/08/2024 5:07 PM Age: 64 years old Clinical indication: Injury or trauma; Fall; Blunt; Generalized TECHNIQUE: Imaging protocol: Computed tomography of the abdomen and pelvis without contrast. Radiation optimization: All CT scans at this facility use at least one of these dose optimization techniques: automated exposure control; mA and/or kV adjustment per patient size (includes targeted exams where dose is matched to clinical indication); or iterative reconstruction. COMPARISON: CT CHEST/ABD/PEL W 03/08/2024 4:25 PM FINDINGS: Liver: The liver is within normal limits. Gallbladder and biliary ducts: The patient is status post cholecystectomy. Pancreas: The pancreas is within normal limits. Spleen: The spleen is within normal limits. Adrenal glands: The adrenal glands are unremarkable. Kidneys and ureters: The kidneys are within normal limits. Stomach and bowel: The patient is status post gastric bypass surgery. Appendix: No evidence of appendicitis. Intraperitoneal space: Unremarkable. No free air. No significant fluid collection. Vasculature: There are arteriosclerotic changes of the aorta. Lymph nodes: No enlarged lymph nodes. Urinary bladder: The urinary bladder is somewhat distended with urine. Clinical correlation is recommended. Reproductive: The patient is status post hysterectomy. Bones/joints: There are degenerative changes of the lumbar spine. Soft tissues: There is posterior subcutaneous edema. IMPRESSION: 1. Status post cholecystectomy. Status post hysterectomy. Status post gastric bypass surgery. 2. Distended urinary bladder. Clinical correlation is recommended. Dictated and Authenticated by: Giovanni Hung MD. Ordering:AKILA Vivar MD
--- NOTE | 2024-03-08 17:47 | DI.VRAD_ITS ---
PROCEDURE INFORMATION: Exam: CT Head Without Contrast Exam date and time: 03/08/2024 5:04 PM Age: 64 years old Clinical indication: Injury or trauma; Blunt trauma (contusions or hematomas); Consciousness not specified; Injury details: Fall on thinners TECHNIQUE: Imaging protocol: Computed tomography of the head without contrast. Radiation optimization: All CT scans at this facility use at least one of these dose optimization techniques: automated exposure control; mA and/or kV adjustment per patient size (includes targeted exams where dose is matched to clinical indication); or iterative reconstruction. COMPARISON: US THYROID 09/17/2022 1:01 PM FINDINGS: Brain: Cerebral volume loss noted. Scattered areas of decreased attenuation in the deep periventricular white matter consistent with small vessel ischemic change. No evidence for acute intracranial hemorrhage. Cerebral ventricles: No ventriculomegaly. Paranasal sinuses: Mild mucoperiosteal thickening right maxillary sinus and ethmoid air cells. Mastoid air cells: Visualized mastoid air cells are well aerated. Bones: Unremarkable. No acute fracture. Soft tissues: Unremarkable. IMPRESSION: Senescent changes noted. No acute intracranial abnormality. PROCEDURE INFORMATION: Exam: CT Cervical Spine Without Contrast Exam date and time: 03/08/2024 5:04 PM Age: 64 years old Clinical indication: Injury or trauma; Blunt trauma (contusions or hematomas); Consciousness not specified; Injury details: Fall on thinners TECHNIQUE: Imaging protocol: Computed tomography of the cervical spine without contrast. Radiation optimization: All CT scans at this facility use at least one of these dose optimization techniques: automated exposure control; mA and/or kV adjustment per patient size (includes targeted exams where dose is matched to clinical indication); or iterative reconstruction. COMPARISON: CT CHEST/ABD/PEL W 03/08/2024 4:25 PM FINDINGS: Bones: No acute fracture. Normal alignment. No significant disc bulge or herniation. No severe spinal canal stenosis. No significant neural foraminal narrowing. Lungs: Lung apices are normal. Thyroid: There are coarse dystrophic calcifications associated with the right thyroid lobe. There are dystrophic calcifications above the level of the right thyroid gland, possibly within lymph node. Soft tissues: Unremarkable. IMPRESSION: 1. No evidence for acute posttraumatic abnormality. 2. Dystrophic calcifications associated with right neck mass, likely thyroid origin with the adjacent thyroid calcifications. Recommend follow-up. Dictated and Authenticated by: Emi Gonzalez MD. Ordering:AKILA Vivar MD
--- NOTE | 2024-03-08 17:49 | DI.VRAD_ITS ---
PROCEDURE INFORMATION: Exam: CT Thoracic Spine Without Contrast Exam date and time: 03/08/2024 5:07 PM Age: 64 years old Clinical indication: Injury or trauma; Blunt trauma (contusions or hematomas); Injury details: Fall on thinners TECHNIQUE: Imaging protocol: Computed tomography of the thoracic spine without contrast. Radiation optimization: All CT scans at this facility use at least one of these dose optimization techniques: automated exposure control; mA and/or kV adjustment per patient size (includes targeted exams where dose is matched to clinical indication); or iterative reconstruction. COMPARISON: CR XR THORACIC SPINE COMPLETE 01/06/2021 2:53 PM FINDINGS: Bones/joints: There is a normal kyphosis. The vertebral bodies maintain their height throughout. The pedicles are intact. There are degenerative changes with anterior osteophytes at multiple levels. There is disc space narrowing at T5-T6. Soft tissues: Unremarkable. IMPRESSION: Degenerative changes and disc space narrowing as above. PROCEDURE INFORMATION: Exam: CT Lumbar Spine Without Contrast Exam date and time: 03/08/2024 5:07 PM Age: 64 years old Clinical indication: Injury or trauma; Blunt trauma (contusions or hematomas); Injury details: Fall on thinners TECHNIQUE: Imaging protocol: Computed tomography of the lumbar spine without contrast. Radiation optimization: All CT scans at this facility use at least one of these dose optimization techniques: automated exposure control; mA and/or kV adjustment per patient size (includes targeted exams where dose is matched to clinical indication); or iterative reconstruction. COMPARISON: CR XR LUMBAR SPINE COMP W FLEX/EX 01/06/2021 2:56 PM FINDINGS: Bones/joints: There is a normal lordosis of the lumbar spine. The vertebral bodies maintain their height throughout. The pedicles are intact. The disc spaces are preserved. There are slight degenerative changes with small anterior osteophytes at multiple levels. Soft tissues: Unremarkable. IMPRESSION: Slight degenerative changes as above. Dictated and Authenticated by: Giovanni Hung MD. Ordering:AIKLA Vivar MD
--- NOTE | 2024-03-08 17:53 | DI.VRAD_ITS ---
PROCEDURE INFORMATION: Exam: CT Right Lower Extremity, Knee Exam date and time: 03/08/2024 5:19 PM Age: 64 years old Clinical indication: Other: RT knee pain, fall TECHNIQUE: Imaging protocol: CT of the right lower extremity without contrast was performed. Exam focused on the knee. COMPARISON: CR XR LUMBAR SPINE COMP W FLEX/EX 01/06/2021 2:56 PM FINDINGS: Bones/joints: There is no suprapatellar effusion. There is no evidence of a fracture or a dislocation. There are small cystic changes within the distal femur and proximal tibia. There is osteopenia. Soft tissues: There is a quadriceps tendon spur. There is soft tissue edema. IMPRESSION: No evidence of a fracture or dislocation. Osseous findings as above. Dictated and Authenticated by: Giovanni Hung MD. Ordering:AKILA Vivar MD
[2024-03-08 18:03] LABS: Bilirubin Negative (Negative); Blood Small (Negative); Clarity Clear (Clear); Glucose Negative (Negative); Ketones Negative (Negative); Leukocyte Esterase Negative (Negative); Nitrite Negative (Negative); Specific Gravity 1.015 (1.005-1.025); Urobilinogen 0.2 mg/dL (Up to 0.2)
[2024-03-08 18:12] LABS: Bacteria Rare HPF (Negative); C & S Indicated? No; Casts 5-10 Hyaline LPF (Negative); Crystals Negative HPF (Negative); Epithelial Cells Moderate HPF (Negative); Mucus Trace (Negative); RBC 0-2 HPF (0-2); WBC 0-2 HPF (0-5)
[2024-03-08 18:24] LABS: *AMPHETAMINES SCREEN URINE Negative (Negative); *BARBITURATES SCREEN URINE Negative (Negative); *BENZODIAZEPINES SCREEN URINE Negative (Negative); Cannabinoids THC Negative (Negative); Cocaine Screen,Urine Negative (Negative); METHADONE URINE SCREEN Negative (Negative); OPIATES URINE SCREEN Negative (Negative)
[2024-03-08 18:28] LABS: Tricyclic Antidepressants Negative (Negative)
--- NOTE | 2024-03-08 19:00 | RT.EKG_ITS ---
APPROVED REPORT Exam: Resting ECG Reason for Exam: baseline/screening, elevated trop Patient Location: E HR:77 bpm ECG Measurements Heart Rate 77 AXIS AK 210 P 63 QRSd 85 QRS -45 QT 405 T 73 QTc 461 Conclusion Sinus rhythm, rate 77 No interval abnormalities Q waves III, aVF, unchanged from priors No STEMI
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
[2024-03-08 21:40] LABS: Troponin I 99 ng/L (<or=51)
[2024-03-08] MEDS: traZODone 50 MG TAB PO (23:08)
[2024-03-08] MEDS: Gabapentin 300 MG CAP 600 MG PO (23:09)
[2024-03-08] MEDS: QUEtiapine 100 MG TAB PO (23:09)
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
[2024-03-09 03:25] VITALS: BP 129/70; PULSE 84; RESP 19; TEMP 36.9; O2SAT 97
[2024-03-09] MEDS: Normal Saline 1,000 ML 250 ML IV ×2 (05:49→10:08)
[2024-03-09] MEDS: Normal Saline Flush 10 ML SYR IVP (05:50)
[2024-03-09 06:26] LABS: HCT 30.7 % (36.0-46.0); HGB 9.5 g/dL (11.2-15.7); MCH 25.9 pg (27.0-33.0); MCHC 30.9 % (32.0-36.0); MCV 84 fL (80-95); MPV 9.5 fL (8.0-11.0); Platelet Count 305 10^3/uL (130-400); RBC 3.67 10^6/uL (3.93-5.22); RDW-SD 49.2 fL
[2024-03-09 06:43] LABS: ALT 21 U/L (14-59); AST 39 U/L (15-37); Alkaline Phosphatase 62 U/L (46-116); Anion Gap 8.1 mmol/L (3-11); BUN 16 mg/dL (7-18); Bilirubin, Total 0.34 mg/dL (0.2-1.0); CO2 26.9 mmol/L (21.0-32.0); Calcium 8.4 mg/dL (8.5-10.1); Chloride 108 mmol/L (98-107); Creatine Kinase 833 U/L (26-192); Estimated GFR 62.13 (mL/min/1.73m2); Glucose 88 mg/dL (74-106); Potassium 3.5 mmol/L (3.5-5.1); Sodium 143 mmol/L (136-145); Total Protein 6.1 g/dL (6.4-8.2)
[2024-03-09 06:45] LABS: Troponin I 105 ng/L (<or=51)
[2024-03-09 08:05] VITALS: BP 128/92; PULSE 87; RESP 18; TEMP 36.8; O2SAT 96
[2024-03-09] MEDS: Lisinopril 10 MG TAB PO (08:13)
[2024-03-09] MEDS: Aspirin 81 MG CHEW PO (08:13)
[2024-03-09] MEDS: Multivitamin w/Minerals TAB 1 TAB PO (08:14)
[2024-03-09] MEDS: Atorvastatin 40 MG TAB PO (08:14)
[2024-03-09] MEDS: Omeprazole 20 MG CAPCR PO (08:14)
[2024-03-09] MEDS: buPROPion-XL 150 MG TABCR 450 MG PO (08:14)
[2024-03-09] MEDS: Apixaban 5 MG TAB PO (08:14)
[2024-03-09] MEDS: DULoxetine 20 MG CAP 40 MG PO (08:14)
[2024-03-09 08:15] VITALS: O2SAT 98
[2024-03-09 11:40] VITALS: BP 127/71; PULSE 75; RESP 17; TEMP 36.7; O2SAT 94
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
--- NOTE | 2024-03-09 13:30 | DI.US_ITS ---
APPROVED REPORT EXAM: Comprehensive 2D, Doppler, and color-flow Echocardiogram Patient Location: In-Patient Room/Bed: [address] [employer] Drafting Officer: Shaun Fan RDCS (AE) Indications: PVD, CKD with rhabdo Conclusion Borderline concentric left ventricular hypertrophy. Ejection fraction is 60%. Wall motion is normal Normal right ventricular size and function Both atria are normal in size There is no structural or hemodynamically significant valvular disease Estimated right ventricular systolic pressure is 24 mmHg Wall motion Left Ventricle The left ventricle is normal size. The left ventricular systolic function is normal. The left ventric ular ejection fraction is within the normal range. Borderline concentric left ventricular hypertrophy . There is normal LV segmental wall motion. There is no ventricular septal defect visualized. LVEF is 60%. Right Ventricle The right ventricle is normal size. The right ventricular systolic function is normal. Atria The left atrium size is normal. The right atrium size is normal. The interatrial septum is intact wit h no evidence for an atrial septal defect. Aortic Valve The aortic valve is normal in structure. There is no aortic valvular stenosis. No aortic regurgitatio n is present. Mitral Valve The mitral valve is normal in structure. No evidence of mitral valve stenosis. Trace mitral regurgita tion. Tricuspid Valve The tricuspid valve is normal in structure. There is no tricuspid valve stenosis. Trace tricuspid reg urgitation. The RVSP is 23.5 mmHg. Pulmonic Valve The pulmonary valve is normal in structure. There is no pulmonic valvular stenosis. There is no pulmo evelin valvular regurgitation. Great Vessels The aortic root is normal in size. The ascending aorta is borderline dilated. Aortic arch is not well visualized. IVC is normal in size and collapses >50% with inspiration. Pericardium There is no pericardial effusion. 2D Dimensions IVSD d PLAX 0.99 cm F: 0.6-1.0 Ao Root d 3.62 cm F: 2.7 - 3.3 LVPW d PLAX 0.96 cm F: 0.6 - 1.0 Ao Asc Diam d 3.44 cm F: 2.3 - 3.1 LVID d PLAX 4.31 cm F: 3.8 - 5.2 LVDs 2.94 cm F: 2.2 - 3.5 LV EF Teichholz 60.1 % FS 31.80 % LV EDV (Teich) 83.4 mL LV ESV (Teich) 33.2 mL Stroke Vol Index (Teich) 26.53 M-Mode TAPSE 1.94 cm (M/F) >1.7 Auto EF LV EDV A4C 104.2 mL LV EDV A2C 72.3 mL LV EDV BP 86.0 mL LV ESV A4C 41.6 mL LV ESV A2C 29.0 mL LV ESV BP 35.0 mL LVEF(%) A4C 60.1 % LVEF(%) A2C 59.9 % LVEF(%) BP 59.3 % LV SV A4C 62.6 ml LV SV A2C 43.3 ml LV SV BP 51.0 ml LV CO A4C 4.8 L/min LV CO A2C 3.5 L/min LV CO BP 4.1 L/min HR A4C 76.76 BPM HR A2C 80.00 BPM LV EDV Index (BP) LA Volume LA Length A4C 4.9 cm LA Length A2C 5.4 cm LA Area A4C s 7.89 cm2 LA Area A2C s 12.90 cm2 LA Vol A4C A-L 10.87 mL LA Vol A2C A-L 25.98 mL LA Vol Biplane A-L 17.8 mL LA Vol/BSA A4C A-L LA Vol/BSA A2C A-L LA Vol/BSA BP A-L 9.4 mL/m2 LA Vol A4C MOD 10.2 mL LA Vol A2C MOD 25.0 mL LA Vol BP MOD 16.7 mL RA Volume RA Area A4C 9.3 cm2 RA ESV A4C (A-L) 18.8mL RA Vol/BSA A4C A-L RA Length A4C 3.9 cm RA ESV A4C (MOD) 17.6mL LV Diastology MV E' medial 0.081 (>0.07 m/s) MV E Vmax 0.76 (0.4-1.3 m/s) MV E/E' MED 9.37 (<14) MV A Vmax 1.10 (0.4-1.3 m/s) MV E' lateral 0.091 (>0.1 m/s) E/A Ratio 0.7 MV E/E' LAT 8.34 (<14) MV E' Average 0.086 m/s MV E/E'(average) 8.82 Aortic Valve AoV Vmax 1.37 m/s LVOT Vmax 1.25 m/s AoV Peak Grad 7.5 mmHg LVOT Peak Grad 6.2 mmHg AoV Area (Vmax) 2.87 cm2 LVOT VTI 0.257 m AoV VTI 0.289 m LVOT Mean Grad 3.7 mmHg AoV Mean Brandon. 0.96 m/s LVOT SV 81.22 mL AoV Mean Grad 4.2 mmHg LVOT Diam s 2.00 cm AoV Area (VTI) 2.81 cm2 AV Regurg Peak Gr. 7.54 mmHg Velocity Ratio 0.91 Pulmonary Valve PV Vmax 0.90 (0.5-1.5 m/s) RVOT Vmax 0.91 m/s PV Peak Grad 3.3 mmHg RVOT Peak Gr. 3.3 mmHg PV Mean Brandon 0.63 m/s RVOT VTI 0.174 m PV Mean Grad 1.8 mmHg RVOT Mean Gr. 1.7 mmHg Tricuspid Valve RA Pressure 3.00 mmHg TR Vmax 2.26 m/s TR Peak Grad 20.4 mmHg RVSP (TR) 23.5 mmHg
[2024-03-09] MEDS: Acetaminophen 325 MG TAB PO (14:16)
--- NOTE | 2024-03-09 14:32 | CHAPLAIN ---
Stefania was resting in bed when I visited. She told me that she'd fallen at home and landed on her knees and showed me her bruised knees. She said she walked a little bit today with PT using a walker. According to ED notes, she fell and her gave her blankets and pillows and she stayed on the floor for about 24 hours before EMS was called. She told ED staff she had been drinking before the fall. I explained my role and offered support.
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
--- NOTE | 2024-03-09 15:05 | PDOC.CMDIS ---
Date of service: 03/09/24 Time of Service: 15:05 LACE Index Scoring Tool Questions: Length of Stay (in days): 1 Was the patient admitted via the E.D.?: Yes Comorbidities: Mild Liver/Renal Disease E.D. Visits: 2 Answers: Total Score: 8 Risk of Readmission: Low Risk Care Management Discharge Plan Reason for Hospitalization: alcohol intoxication Discharge Plan: Stefania was admitted early yesterday evening after becoming intoxicated and falling to the floor. She banged her left knee in the fall, with no serious injury, but was on the floor for 1 day. Her gave her a pillow and a blanket. Her daughter called EMS when she didn't like her breathing. She was found to be dehydrated. She was treated with IVF. She had PT eval today. She was given a walker for home use. Stefania is declining both HH and outpatient PT because it causes her fibromyalgia pain to flare up. Stefania was given a hand out of the inpatient and outpatient addiction services, and was encouraged to f/u with them. Stefania is to be discharged this afternoon. She will f/u at her PCP office in early April, and continue per her plan of care. Her friend will drive her home. Patient/Family Education Needs: Review of discharge instructions, limitations, activity, f/u plan and discuss ask me 3. SDOH Health Related Social Needs: No Data to Display Referrals and interventions: pt states she would like assistance getting walker for home
== END 2024-03-09 15:14 | disposition home or self-care (01) ==
LOC: ER 20:44 → MS 03-09 12:36
PROVIDERS: Admitting Provider Family Medicine; Emergency Provider Physician Assistant; PCP Student in an Organized Health Care Education/Training Program; Visit Provider Family Medicine
DX: T79.6XXA Traumatic ischemia of muscle, initial encounter (principal); F10.929 Alcohol use, unspecified with intoxication, unspecified; N18.32 Chronic kidney disease, stage 3b; J90 Pleural effusion, not elsewhere classified; F43.10 Post-traumatic stress disorder, unspecified; G47.33 Obstructive sleep apnea (adult) (pediatric); W19.XXXA Unspecified fall, initial encounter; F41.8 Other specified anxiety disorders; M79.7 Fibromyalgia; Z98.84 Bariatric surgery status; Z79.01 Long term (current) use of anticoagulants; Z79.899 Other long term (current) drug therapy; I25.10 Atherosclerotic heart disease of native coronary artery without angina pectoris; R74.8 Abnormal levels of other serum enzymes; I12.9 Hypertensive chronic kidney disease with stage 1 through stage 4 chronic kidney disease, or unspecified chronic kidney disease; S80.02XA Contusion of left knee, initial encounter; R29.6 Repeated falls; M54.6 Pain in thoracic spine; G47.00 Insomnia, unspecified; K21.9 Gastro-esophageal reflux disease without esophagitis; G62.9 Polyneuropathy, unspecified; F12.90 Cannabis use, unspecified, uncomplicated; I70.201 Unspecified atherosclerosis of native arteries of extremities, right leg
CPT/HCPCS: 00123; 36415; 71250; 80053; 80307; 82550; 83690; 85027; 87040; 87637; 93005; 93306; 96360; 96361; 97162; 97530; 99285; 70450; 71045; 72125; 73700; 74176; 80320; 81003; 81015; 82140; 83605; 83735; 84443; 84484; 85025; 93010; 94760; 99223; 99239

== ENCOUNTER 2024-03-27 03:19 | Outpatient (CLI) | payer MEDICARE, MEDICAID, SELFPAY ==
[2024-03-27 13:07] LABS: Abs Immature Grans 0.02 10^3/uL (0.0-0.06); Absolute Basophil Count 0.04 10^3/uL (0.0-0.2); Absolute Eosinophil Count 0.42 10^3/uL (0.0-0.7); Absolute Lymphocyte Count 1.75 10^3/uL (1.2-3.4); Absolute Monocyte Count 0.48 10^3/uL (0.1-0.8); Absolute Neutrophil Count 2.42 10^3/uL (1.2-6.7); Basophils % 0.8 %; Eosinophils % 8.2 %; HCT 30.7 % (36.0-46.0); HGB 9.2 g/dL (11.2-15.7); Immature Grans % 0.4 %; Lymphocytes % 34.1 %; MCH 25.3 pg (27.0-33.0); MCV 84 fL (80-95); MPV 9.6 fL (8.0-11.0); Monocytes % 9.4 %; Neutrophils % 47.1 %; Platelet Count 321 10^3/uL (130-400); RBC 3.64 10^6/uL (3.93-5.22); RDW 15.7 % (11.7-14.6); RDW-SD 48.3 fL; WBC 5.13 10^3/uL (4.4-10.8)
[2024-03-27 13:36] LABS: INR 1.1 (0.9-1.1); Prothrombin Time 11.4 sec (9.1-11.1)
[2024-03-27 13:59] LABS: ALT 12 U/L (14-59); AST 16 U/L (15-37); Albumin 3.3 g/dL (3.4-5.0); Alkaline Phosphatase 60 U/L (46-116); Anion Gap 8.7 mmol/L (3-11); BUN 23 mg/dL (7-18); Bilirubin, Total 0.24 mg/dL (0.2-1.0); CO2 28.3 mmol/L (21.0-32.0); Calcium 9.1 mg/dL (8.5-10.1); Chloride 110 mmol/L (98-107); Estimated GFR 62.13 (mL/min/1.73m2); Ferritin 6 ng/mL (8-252); Glucose 128 mg/dL (74-106); Potassium 3.4 mmol/L (3.5-5.1); Sodium 147 mmol/L (136-145); Total Protein 6.8 g/dL (6.4-8.2); Vitamin B12 525 pg/mL (193-986)
[2024-03-27 14:01] LABS: Iron 18 ug/dL (50-170); Total Iron Binding Capacity 371 ug/dL (250-450); Transferrin Sat 5 % (15-50)
[2024-03-27 14:05] LABS: Folate 4.6 ng/mL (8.6-20.0)
[2024-03-27 14:13] LABS: GGT 9 U/L (5-55)
== END 2024-03-27 03:20 | disposition home or self-care (01) ==
LOC: LBO 03:19
PROVIDERS: PCP Student in an Organized Health Care Education/Training Program; Visit Provider Emergency Medicine
DX: K76.9 Liver disease, unspecified (principal); D64.9 Anemia, unspecified; E77.8 Other disorders of glycoprotein metabolism
CPT/HCPCS: 36415; 80053; 82607; 82728; 82746; 82977; 83540; 83550; 85025; 85610

== ENCOUNTER 2024-04-13 03:01 | Outpatient (CLI) | payer MEDICARE, MEDICAID, SELFPAY ==
--- NOTE | 2024-04-13 07:30 | DI.US_ITS ---
Exam(s) US THYROID EXAM: US THYROID CLINICAL HISTORY: Assess stability,thyroid nodule,e04.1. TECHNIQUE: Ultrasound thyroid performed using standard protocol. COMPARISON: No exams were available for comparison FINDINGS: ISTHMUS: 3.8 mm RIGHT LOBE: Size: 6.0 x 3.7 x 3.3 cm Echogenicity: Normal. Vascularity: Normal. Nodules: There is again seen a large mixed cystic and solid isoechoic mass in the right lobe of the t hyroid gland. It measures 3.7 x 3.1 x 3.5 cm. This compares to 3.8 x 2.4 x 3.2 cm. There is a macr ocalcification. It is consistent with a TI rads level 3 nodule. Due to its size, FNA is recommended . There is a 2nd nodule again seen in the right lobe which measures 1.6 x 1.1 x 1.1 cm. It is solid and hypoechoic. It has indistinct margins and macrocalcification. It is consistent with a TI rads level 5 nodule. Due to its size, biopsy is recommended. LEFT LOBE: Size: 3.5 x 1.5 x 1.4 cm Echogenicity: Normal. Vascularity: Normal. Nodules: There is a stable nodule in the left lobe measuring 1.2 x 0.9 x 0.9 cm. It is mixed cystic and solid and isoechoic. It is size previously was 1.1 x 0.7 x 0.8 cm. It is consistent with a TI r ads level 2 nodule. No follow-up is recommended. OTHER FINDINGS: None. IMPRESSION: Relatively stable size of the thyroid nodules. Please see the above discussion for complete details. DATA REPOSITORY:
== END 2024-04-13 03:21 ==
PROVIDERS: PCP Student in an Organized Health Care Education/Training Program; Visit Provider Otolaryngology
DX: E04.1 Nontoxic single thyroid nodule (principal)
CPT/HCPCS: 76536

== ENCOUNTER 2024-06-02 06:36 | Day surgery (SDC) | payer MEDICARE, MEDICAID, SELFPAY ==
[2024-06-02] MEDS: Tropicam./Phenyleph. (1/2.5%) 5 ML BTL OS ×3 (07:03→07:14)
[2024-06-02 07:04] VITALS: BP 98/71; PULSE 80; RESP 16; TEMP 36; O2SAT 92
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
[2024-06-02 07:25] VITALS: BMI 33.5
[2024-06-02] MEDS: Povidone-Iodine Ophth 30 ML BTL (08:30)
[2024-06-02] MEDS: Duovisc Viscoelastic System EACH 1 EACH (08:35)
[2024-06-02] MEDS: Tetracaine 0.5% 4 ML BTL OS (08:38)
[2024-06-02] MEDS: Lidocaine 1% Pres-Free 5 ML VIAL (08:39)
[2024-06-02] MEDS: Phenylephrine/Lidocaine (15/10) MG/ML 1 ML VIAL (08:39)
[2024-06-02] MEDS: Balanced Salt Soln.-PLUS 500 ML BAG OP (08:40)
[2024-06-02] MEDS: Prednisolone 1%, Moxifloxacin 0.5%, Bromfenac 0.09% 5.6ML BTL OS (08:45)
[2024-06-02] MEDS: Moxifloxacin-PF 1 MG/ML VIAL (08:51)
[2024-06-02 08:55] VITALS: BP 115/73; PULSE 75; RESP 16; TEMP 36.4; O2SAT 96
--- NOTE | 2024-06-02 08:56 | W.PM.DSUDISC ---
Date of service: 06/02/24 Discharge Plan Disposition Patient Disposition: Home Discharge Details Attending Provider: David Baird Primary Care Provider: Chai Lux Home Meds and New Rx's Prescriptions: No Action calcium-vitamin D3-vitamin K 500-100-40 mg-unit-mcg tablet,chewable 2 tab PO DAILY Hair,Skin and Nails Tablet 1 tab PO DAILY bupropion HCl [Wellbutrin XL] 150 mg tablet extended release 24 hr 150 mg PO QAM Qty: 90 3RF Rx Instructions: take 150 mg with 300 mg to total 450mg of Wellbutrin 450 mg daily per note dated 04/03/20 [facility] bupropion HCl 300 mg tablet extended release 24 hr 300 mg PO QAM MDD 450 mg Qty: 90 3RF Rx Instructions: Continuing Rx from [facility], 450mg in total trazodone 50 mg tablet 50 mg PO QHS quetiapine 100 mg tablet 100 mg PO QHS lb-oz-vrqd-FA-Ca carb-vit K 18 mg iron-400 mcg-500 mg tablet 1 tab PO DAILY ferrous sulfate 325 mg (65 mg iron) tablet 325 mg PO DAILY Qty: 90 0RF Patient Comments: patient hasn't started aking duloxetine 20 mg capsule,delayed release(DR/EC) 40 mg PO DAILY Qty: 180 3RF Rx Instructions: per [facility] 01/17/20 (DME) hearing aids 0 .Route .MEDSUPPLY Qty: 1 0RF Rx Instructions: As directed; MEDICALLY CLEARED FOR HEARING AIDS aspirin 81 mg tablet,chewable 81 mg PO DAILY atorvastatin 40 mg tablet 40 mg PO DAILY melatonin 3 mg tablet 3 mg PO HS PRN nitroglycerin 0.4 mg tablet, sublingual 0.4 mg sublingual Q5M PRN Rx Instructions: do not exceed 3 doses per episode polyethylene glycol 3350 [Miralax] 17 gram powder in packet 17 g PO DAILY PRN omeprazole 20 mg capsule,delayed release(DR/EC) See Rx Instructions .ROUTE .COMPLEX Qty: 28 5RF Dose Instruction: TAKE 1 CAPSULE BY MOUTH DAILY Rx Instructions: TAKE 1 CAPSULE BY MOUTH DAILY lisinopril 10 mg tablet See Rx Instructions .ROUTE .COMPLEX Qty: 28 5RF Dose Instruction: TAKE 1 TABLET BY MOUTH DAILY Rx Instructions: TAKE 1 TABLET BY MOUTH DAILY ibuprofen 600 mg tablet See Rx Instructions .ROUTE .COMPLEX Qty: 28 5RF Dose Instruction: TAKE 1 TABLET BY MOUTH DAILY AT 5:35 TRIAL FOR ARTHRITIS TAKE WITH FOOD PLACE IN PACKS PLEASE Rx Instructions: TAKE 1 TABLET BY MOUTH DAILY AT 5:35 TRIAL FOR ARTHRITIS TAKE WITH FOOD PLACE IN PACKS PLEASE apixaban 5 mg tablet 5 mg PO BID Rx Instructions: 02/29/24 [facility] [place], Apixaban 5mg, 1 tab PO BID, for 90 days.HE After loading with 2 tablets BID for 6 days pregabalin [Lyrica] 25 mg capsule 25 mg PO TID PRN (Reason: pain, with slow trial USING BOTTLE vs BUBBLE PACKS) Qty: 90 1RF Rx Instructions: Trial 1 capsule in the morning x2 days, then 2 caps x 1 week, then add third capsule @ midday (slow titration; ok with MEY qHS) Discharge Instructions Stand Alone Forms: [facility] Post-Op Cataract, Oscar Reed ([facility]) Discharge Orders Discharge Orders: Discharge Order (Routine); Ordered 06/02/24 Ordered By: David Baird DS: Diagnosis Discharge Diagnosis (1) Cortical age-related cataract, left eye: Status: Resolved (2) Nuclear age-related cataract, left eye: Status: Resolved
--- NOTE | 2024-06-02 08:56 | W.PM.OP ---
Operative Note Operative Note PRE-OP DIAGNOSIS: Nuclear/cortical cataract, left eye POST-OP DIAGNOSIS: same PROCEDURE: Cataract extraction using phacoemulsification with intraocular lens implant, left eye SURGEON: David Baird ANESTHESIA TYPE: Local By Surgeon and MAC Refer to Anesthesia Record PATHOLOGY: none sent COMPLICATIONS: None Patient was transported to: same day Patient's condition: stable Implants: Scott Clareon [id number] Indications: Progressive decreased vision due to cataract, left eye Procedure Description: CATARACT SURGERY OPERATIVE REPORT PREOPERATIVE DIAGNOSIS: Nuclear/cortical cataract, left eye POSTOPERATIVE DIAGNOSIS: Same OPERATION: Cataract extraction using phacoemulsification with posterior chamber intraocular lens implant, left eye. IOL: IOL Event Marketing Assistant/Model: Scott Clareon [id number] IOL Power: + 24.5 diopters IOL Serial Number: [id number] Optic Diameter: 6.0mm Haptic/Overall Diameter: 13.0mm PHACO INFO: Scott Centurion Vision System with OZil and Active Fluidics Cumulative Dispersed Energy (CDE): 6.86 seconds SURGEON: David Baird MD, SIN ANESTHESIA: Monitored Anesthesia Care (MAC), with local sub-tenon's anesthetic infiltration COMPLICATIONS: None SPECIMENS: None INDICATIONS FOR PROCEDURE: The patient is a 64-year-old lady with history of diminished visual acuity in her left eye secondary to the development of nuclear/cortical cataract. She is significantly symptomatic that she desires cataract surgery in attempt to improve and maximize her vision. See office notes for detailed information. PROCEDURE: The correct surgical eye was identified and marked as the left eye and the pupil was dilated in the preoperative area using mydriatics and cycloplegics. The dilated pupil size was 7.0 mm. Oral sedation was administered in the form of an Imprimis MKO Melt (midazolam 3mg/ketamine 25mg/ondansetron 2mg). The patient was brought to the operating room where cardiopulmonary monitoring was instituted and surgical time-out was performed, confirming the correct operative eye and IOL power. Topical anesthesia was administered and ophthalmic povidone-iodine 5% was instilled into the conjunctival fornices. The galen-ocular area was prepped with Betadine 10% solution and draped in the usual sterile fashion for intraocular surgery, including an aperture drape. A Tegaderm transparent film dressing was cut in half and used to cover the lashes and lid margins. Care was taken to sequester the lashes and lid margins under the Tegaderm dressing. A lid speculum was placed between the lids of the operative eye and the Scott LuxOR Revalia operating microscope was maneuvered into position. Chad scissors were then used to make a conjunctival buttonhole approximately 6mm posterior to the limbus in the inferonasal quadrant. Blunt dissection was carried out to expose bare sclera, and a blunt-tipped sub-tenon?s anesthesia cannula was introduced and passed posteriorly along the globe where non-preserved plain lidocaine was injected into posterior sub-Tenon?s space. A sideport knife was used to make a paracentesis port. Intraocular phenylephrine/lidocaine was injected into the anterior chamber. The anterior chamber was then filled with viscoelastic. A keratome knife was used construct a two-plane clear corneal tunnel extending 2.0mm into clear cornea. A flap was raised on the anterior capsule and capsulorhexis forceps were used to complete a continuous curvilinear capsulorhexis of 5.0 mm. Balanced salt solution was then used to perform cortical cleaving hydrodissection and nuclear hydrodelineation until the lens could be freely rotated within the capsular bag. The lens nucleus was then disassembled and removed within the capsular bag and iris plane using phacoemulsification. Residual cortical material was removed using the irrigation/aspiration handpiece. The posterior capsule was carefully polished to remove as much residual lens epithelial cells as safely possible. The capsular bag was then inflated and the anterior chamber deepened with viscoelastic. The lens implant described above was inserted into the capsular bag using the Scott Autonome Injector. A Kuglen hook was used to dial the IOL into position. Residual viscoelastic was then removed first from posterior to the IOL, then from the anterior chamber using the I/A handpiece. The lens implant was noted to center nicely within the capsular bag. The incisions were stromally hydrated, and the anterior chamber was reformed using BSS. Then 0.5cc of moxifloxacin 1.0mg/ml were injected into the capsular bag and anterior chamber. The incisions were checked with a Weck spear and found to be secure. Several drops of ophthalmic povidone-iodine 5% were then applied to the eye followed by two drops of combination steroid/NSAID/antibiotic solution. The drapes were removed and a clear plastic protective eye shield was placed over the eye. The patient was then returned to Same Day Surgery in stable condition. Date of Procedure: 06/02/24
--- NOTE | 2024-06-02 09:08 | W.ANESPOSTOP ---
Postoperative Evaluation Date, Time and Location Date Performed: 06/02/24 Time Performed: 09:08 Patient Location: Day Surgery Unit Vital Signs Most Recent Imported Vital Signs: Most Recent Vital Signs Temp Pulse Resp BP Pulse Ox 36.4 C L 75 16 115/73 96 06/02/24 08:55 06/02/24 08:55 06/02/24 08:55 06/02/24 08:55 06/02/24 08:55 Pain Score Most Recent Pain Score: Most Recent Pain Score Pain Level 0 06/02/24 07:04 Assessment Mental Status: Awake (Alert & Oriented to Patient Baseline) Airway and Respiratory Function: Patent airway with normal (patient baseline) respiratory exam Cardiovascular Function: Hemodynamically Stable Hydration Status: Adequately Hydrated Nausea & Vomiting: No Nausea or Vomiting Pain: Pt. Denies Any Pain Peripheral Nerve Block: Patient did not receive a nerve block
[2024-06-02 09:23] VITALS: BP 110/77; PULSE 88; RESP 16; TEMP 36.2; O2SAT 94
== END 2024-06-02 09:29 | disposition home or self-care (01) ==
LOC: SUR 06:36
PROVIDERS: PCP Family Medicine; Visit Provider Ophthalmology
PROC: (CPT 66984; principal; 2024-06-02 08:30)
DX: H25.012 Cortical age-related cataract, left eye (principal); H25.12 Age-related nuclear cataract, left eye
CPT/HCPCS: 66984; 00123; V2632; J2003

== ENCOUNTER 2024-06-05 14:19 | Outpatient (REF) | payer MEDICARE, MEDICAID, SELFPAY ==
[2024-06-05 19:35] LABS: Bacteria Negative HPF (Negative); C & S Indicated? No; Casts Negative LPF (Negative); Crystals Negative HPF (Negative); Epithelial Cells Negative HPF (Negative); Mucus Negative (Negative); RBC Negative HPF (0-2); WBC Negative HPF (0-5)
== END 2024-06-05 14:20 | disposition home or self-care (01) ==
LOC: LBN 14:19
PROVIDERS: PCP Family Medicine; Visit Provider Family Medicine
DX: R31.9 Hematuria, unspecified (principal)
CPT/HCPCS: 81015

== ENCOUNTER 2024-06-09 06:19 | Day surgery (SDC) | payer MEDICARE, MEDICAID, SELFPAY ==
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
[2024-06-09] MEDS: Tropicam./Phenyleph. (1/2.5%) 5 ML BTL OD ×3 (06:37→06:52)
[2024-06-09 06:38] VITALS: BP 137/80; PULSE 72; RESP 16; TEMP 36.2; O2SAT 96
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
[2024-06-09 07:22] VITALS: BMI 33.6
[2024-06-09] MEDS: Lidocaine 1% Pres-Free 5 ML VIAL (07:39)
[2024-06-09] MEDS: Tetracaine 0.5% 4 ML BTL OD (07:40)
[2024-06-09] MEDS: Povidone-Iodine Ophth 30 ML BTL (07:41)
[2024-06-09] MEDS: Balanced Salt Soln.-PLUS 500 ML BAG OP (07:41)
[2024-06-09] MEDS: Trypan Blue 0.06% 0.5 ML SYR (07:42)
[2024-06-09] MEDS: Duovisc Viscoelastic System EACH 1 EACH (07:42)
[2024-06-09] MEDS: Phenylephrine/Lidocaine (15/10) MG/ML 1 ML VIAL (07:43)
[2024-06-09] MEDS: Moxifloxacin-PF 1 MG/ML VIAL (07:48)
[2024-06-09] MEDS: Prednisolone 1%, Moxifloxacin 0.5%, Bromfenac 0.09% 5.6ML BTL OD (07:49)
--- NOTE | 2024-06-09 07:55 | W.PM.DSUDISC ---
Date of service: 06/09/24 Discharge Plan Disposition Patient Disposition: Home Discharge Details Attending Provider: David Baird Primary Care Provider: Chai Lux Home Meds and New Rx's Prescriptions: No Action calcium-vitamin D3-vitamin K 500-100-40 mg-unit-mcg tablet,chewable 2 tab PO DAILY Hair,Skin and Nails Tablet 1 tab PO DAILY bupropion HCl [Wellbutrin XL] 150 mg tablet extended release 24 hr 150 mg PO QAM Qty: 90 3RF Rx Instructions: take 150 mg with 300 mg to total 450mg of Wellbutrin 450 mg daily per note dated 04/03/20 [facility] bupropion HCl 300 mg tablet extended release 24 hr 300 mg PO QAM MDD 450 mg Qty: 90 3RF Rx Instructions: Continuing Rx from [facility], 450mg in total trazodone 50 mg tablet 50 mg PO QHS quetiapine 100 mg tablet 100 mg PO QHS pz-yt-lmtc-FA-Ca carb-vit K 18 mg iron-400 mcg-500 mg tablet 1 tab PO DAILY ferrous sulfate 325 mg (65 mg iron) tablet 325 mg PO DAILY Qty: 90 0RF Patient Comments: patient hasn't started aking duloxetine 20 mg capsule,delayed release(DR/EC) 40 mg PO DAILY Qty: 180 3RF Rx Instructions: per [facility] 01/17/20 (DME) hearing aids 0 .Route .MEDSUPPLY Qty: 1 0RF Rx Instructions: As directed; MEDICALLY CLEARED FOR HEARING AIDS aspirin 81 mg tablet,chewable 81 mg PO DAILY atorvastatin 40 mg tablet 40 mg PO DAILY melatonin 3 mg tablet 3 mg PO HS PRN nitroglycerin 0.4 mg tablet, sublingual 0.4 mg sublingual Q5M PRN Rx Instructions: do not exceed 3 doses per episode polyethylene glycol 3350 [Miralax] 17 gram powder in packet 17 g PO DAILY PRN omeprazole 20 mg capsule,delayed release(DR/EC) See Rx Instructions .ROUTE .COMPLEX Qty: 28 5RF Dose Instruction: TAKE 1 CAPSULE BY MOUTH DAILY Rx Instructions: TAKE 1 CAPSULE BY MOUTH DAILY lisinopril 10 mg tablet See Rx Instructions .ROUTE .COMPLEX Qty: 28 5RF Dose Instruction: TAKE 1 TABLET BY MOUTH DAILY Rx Instructions: TAKE 1 TABLET BY MOUTH DAILY ibuprofen 600 mg tablet See Rx Instructions .ROUTE .COMPLEX Qty: 28 5RF Dose Instruction: TAKE 1 TABLET BY MOUTH DAILY AT 5:35 TRIAL FOR ARTHRITIS TAKE WITH FOOD PLACE IN PACKS PLEASE Rx Instructions: TAKE 1 TABLET BY MOUTH DAILY AT 5:35 TRIAL FOR ARTHRITIS TAKE WITH FOOD PLACE IN PACKS PLEASE apixaban 5 mg tablet 5 mg PO BID Rx Instructions: 02/29/24 [facility] [place], Apixaban 5mg, 1 tab PO BID, for 90 days.HE After loading with 2 tablets BID for 6 days pregabalin [Lyrica] 25 mg capsule 25 mg PO TID PRN (Reason: pain, with slow trial USING BOTTLE vs BUBBLE PACKS) Qty: 90 1RF Rx Instructions: Trial 1 capsule in the morning x2 days, then 2 caps x 1 week, then add third capsule @ midday (slow titration; ok with MEY qHS) Discharge Instructions Stand Alone Forms: [facility] Post-Op Cataract, Oscar Reed ([facility]U) Discharge Orders Discharge Orders: Discharge Order (Routine); Ordered 06/09/24 Ordered By: David Baird DS: Diagnosis Discharge Diagnosis (1) Cortical age-related cataract, right eye: Status: Resolved (2) Nuclear age-related cataract, right eye: Status: Resolved
--- NOTE | 2024-06-09 07:56 | ROE_ITS ---
Operative Note Operative Note PRE-OP DIAGNOSIS: Nuclear/cortical cataract, right eye POST-OP DIAGNOSIS: same PROCEDURE: Cataract extraction using phacoemulsification with intraocular lens implant, right eye SURGEON: David Baird ANESTHESIA TYPE: Local By Surgeon and MAC Refer to Anesthesia Record ESTIMATED BLOOD LOSS: 0 PATHOLOGY: none sent COMPLICATIONS: None Patient was transported to: same day Patient's condition: stable Implants: Scott Clareon [id number] Indications: Progressive decreased vision due to cataract, right eye Procedure Description: CATARACT SURGERY OPERATIVE REPORT PREOPERATIVE DIAGNOSIS: Nuclear/cortical cataract, right eye POSTOPERATIVE DIAGNOSIS: Same OPERATION: Cataract extraction using phacoemulsification with posterior chamber intraocular lens implant, right eye. IOL: IOL Burial Vault Deliverer And Installer/Model: Scott Clareon [id number] IOL Power: + 23.5 diopters IOL Serial Number: [id number] Optic Diameter: 6.0mm Haptic/Overall Diameter: 13.0mm PHACO INFO: Scott Centurion Vision System with OZil and Active Fluidics Cumulative Dispersed Energy (CDE): 3.57 seconds SURGEON: David Baird MD, SIN ANESTHESIA: Monitored Anesthesia Care (MAC), with local sub-tenon's anesthetic infiltration COMPLICATIONS: None SPECIMENS: None INDICATIONS FOR PROCEDURE: The patient is a 64-year-old lady with history of diminished visual acuity in both eyes secondary to the development of bilateral nuclear/cortical cataract. She has already undergone cataract surgery in the left eye and is doing well postoperatively. She now presents for cataract surgery in the right eye. See office notes for detailed information. PROCEDURE: The correct surgical eye was identified and marked as the right eye and the pupil was dilated in the preoperative area using mydriatics and cycloplegics. The dilated pupil size was 7.0 mm. Oral sedation was administered in the form of an Imprimis MKO Melt (midazolam 3mg/ketamine 25mg/ondansetron 2mg). The patient was brought to the operating room where cardiopulmonary monitoring was instituted and surgical time-out was performed, confirming the correct operative eye and IOL power. Topical anesthesia was administered and ophthalmic povidone-iodine 5% was instilled into the conjunctival fornices. The galen-ocular area was prepped with Betadine 10% solution and draped in the usual sterile fashion for intraocular surgery, including an aperture drape. A Tegaderm transparent film dressing was cut in half and used to cover the lashes and lid margins. Care was taken to sequester the lashes and lid margins under the Tegaderm dressing. A lid speculum was placed between the lids of the operative eye and the Scott LuxOR Revalia operating microscope was maneuvered into position. Chad scissors were then used to make a conjunctival buttonhole approximately 6mm posterior to the limbus in the inferonasal quadrant. Blunt dissection was carried out to expose bare sclera, and a blunt-tipped sub-tenon?s anesthesia cannula was introduced and passed posteriorly along the globe where non- preserved plain lidocaine was injected into posterior sub-Tenon?s space. A sideport knife was used to make a paracentesis port. VisionBlue was injected into the anterior chamber and allowed to sit for 30 seconds. Intraocular phenylephrine/lidocaine was injected into the anterior chamber. The anterior chamber was then filled with viscoelastic. A keratome knife was used to construct a two--plane clear corneal tunnel extending 2.0mm into clear cornea. A flap was raised on the anterior capsule and capsulorhexis forceps were used to complete a continuous curvilinear capsulorhexis of 5.5 mm. Balanced salt solution was then used to perform cortical cleaving hydrodissection and nuclear hydrodelineation until the lens could be freely rotated within the capsular bag. The lens nucleus was then disassembled and removed within the capsular bag and iris plane using phacoemulsification. Residual cortical material was removed using the I/A handpiece. The posterior capsule was carefully polished to remove as much residual lens epithelial cells as safely possible. The capsular bag was then inflated and the anterior chamber deepened with cohesive viscoelastic. The lens implant described above was inserted into the capsular bag using the Scott Autonome Injector. A Kuglen hook was used to dial the IOL into position. Residual viscoelastic was then removed first from posterior to the IOL, then from the anterior chamber using the I/A handpiece. The lens implant was noted to center nicely within the capsular bag. The incisions were stromally hydrated, and the anterior chamber was reformed using BSS. Then 0.5cc of moxifloxacin 1.0mg/ml were injected into the capsular bag and anterior chamber. The incisions were checked with a Weck spear and found to be secure. Several drops of ophthalmic povidone-iodine 5% were then applied to the eye followed by two drops of combination steroid/NSAID/antibiotic solution. The drapes were removed and a clear plastic protective eye shield was placed over the eye. The patient was then returned to Same Day Surgery in stable condition. Date of Procedure: 06/09/24
[2024-06-09 07:58] VITALS: BP 120/78; PULSE 70; RESP 16; TEMP 36.2; O2SAT 95
--- NOTE | 2024-06-09 08:06 | W.ANESPOSTOP ---
Postoperative Evaluation Date, Time and Location Date Performed: 06/09/24 Time Performed: 07:58 Patient Location: Day Surgery Unit Vital Signs Most Recent Imported Vital Signs: Most Recent Vital Signs Temp Pulse Resp BP Pulse Ox 36.2 C L 72 16 137/80 96 06/09/24 06:38 06/09/24 06:38 06/09/24 06:38 06/09/24 06:38 06/09/24 06:38 Pain Score Most Recent Pain Score: Most Recent Pain Score Pain Level 0 06/09/24 06:38 Assessment Mental Status: Awake (Alert & Oriented to Patient Baseline) Airway and Respiratory Function: Patent airway with normal (patient baseline) respiratory exam Cardiovascular Function: Hemodynamically Stable Hydration Status: Adequately Hydrated Nausea & Vomiting: No Nausea or Vomiting Pain: Pt. Denies Any Pain Peripheral Nerve Block: Patient did not receive a nerve block
[2024-06-09 08:25] VITALS: BP 124/83; PULSE 72; RESP 16; TEMP 36.2; O2SAT 93
== END 2024-06-09 08:30 | disposition home or self-care (01) ==
LOC: SUR 06:19
PROVIDERS: PCP Family Medicine; Visit Provider Ophthalmology
PROC: (CPT 66984; principal; 2024-06-09 08:30)
DX: H25.011 Cortical age-related cataract, right eye (principal); H25.11 Age-related nuclear cataract, right eye
CPT/HCPCS: 66984; 00123; V2632; J2003

== ENCOUNTER → 2024-07-20 14:58 | Outpatient (BNVA) | payer MEDICARE, MEDICAID, SELFPAY | PROVIDERS: PCP Family Medicine; Referring Provider Family Medicine; Visit Provider Physical Therapy Assistant | DX: Z12.11 Encounter for screening for malignant neoplasm of colon (principal); I10 Essential (primary) hypertension; R19.5 Other fecal abnormalities ==

== ENCOUNTER 2024-07-26 08:04 | Day surgery (SDC) | payer MEDICARE, MEDICAID, SELFPAY ==
[2024-07-26 08:15] VITALS: BP 156/85; PULSE 69; RESP 18; TEMP 36.2; O2SAT 96
[2024-07-26] MEDS: Lactated Ringers 1,000 ML 80 ML IV (08:42)
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
[2024-07-26 09:41] VITALS: BMI 31.9
[2024-07-26 10:25] VITALS: BP 126/74; PULSE 74; RESP 16; TEMP 36.7; O2SAT 97
--- NOTE | 2024-07-26 10:38 | W.ANESPOSTOP ---
Postoperative Evaluation Date, Time and Location Date Performed: 07/26/24 Time Performed: 10:38 Patient Location: Day Surgery Unit Vital Signs Most Recent Imported Vital Signs: Most Recent Vital Signs Temp Pulse Resp BP Pulse Ox 36.7 C 74 16 126/74 97 07/26/24 10:25 07/26/24 10:25 07/26/24 10:25 07/26/24 10:07/26/24 10:25 Pain Score Most Recent Pain Score: Most Recent Pain Score Pain Level 0 07/26/24 10:25 Assessment Mental Status: Awake (Alert & Oriented to Patient Baseline) Airway and Respiratory Function: Patent airway with normal (patient baseline) respiratory exam Cardiovascular Function: Hemodynamically Stable Hydration Status: Adequately Hydrated Nausea & Vomiting: No Nausea or Vomiting Pain: Pt. Denies Any Pain Peripheral Nerve Block: Patient did not receive a nerve block
[2024-07-26 11:00] VITALS: BP 128/74; PULSE 84; RESP 16; TEMP 36.5; O2SAT 97
--- NOTE | 2024-07-26 11:01 | W.COLOREPORT ---
Date of service: 07/26/24 Time of Service: 11:02 Colonoscopy Report Procedure Description: PROCEDURES PERFORMED: 1. Colonoscopy PREOPERATIVE DIAGNOSIS: Surveillance colonoscopy POSTOPERATIVE DIAGNOSIS: Mild grade 1 internal hemorrhoids SURGEON: Reno Ramey MD INDICATION FOR PROCEDURE: the patient is a 64-year-old woman without any symptoms of concern. It has been 11 years since her last colonoscopy. She denies a family history of colon cancer. No findings on prior colonoscopies. FINDINGS: No polyps. No inflammation. No obvious diverticular disease. Minimal/mild grade 1 internal hemorrhoids. SURVEILLANCE interval/FOLLOW-UP: 10 years SPECIMENS: None EBL: Minimal COMPLICATIONS: None QUALITY of prep: Excellent Procedure in detail: The patient gave written consent and was in agreement with the indications, the potential risks as well as the benefits of the procedure. They were taken to the endoscopy suite and laid in the left lateral decubitus position. A timeout was performed and anesthesia was administered which was tolerated well. I started the procedure. Digital rectal and visual examination was performed and grossly within normal limits. A well-lubricated flexible colonoscope was then introduced and passed without any notable difficulty all the way to the cecum identified by the ileocecal valve and the appendiceal orifice. The scope was then slowly withdrawn with the above-noted findings. The patient tolerated the procedure well and was taken to the PACU in hemodynamically stable condition.
--- NOTE | 2024-07-26 11:04 | W.PM.DSUDISC ---
Date of service: 07/26/24 Discharge Plan Disposition Patient Disposition: Home Condition: Good Discharge Details Attending Provider: Steven Ramey Primary Care Provider: Chai Lux Home Meds and New Rx's Prescriptions: No Action calcium-vitamin D3-vitamin K 500-100-40 mg-unit-mcg tablet,chewable 2 tab PO DAILY Hair,Skin and Nails Tablet 1 tab PO DAILY bupropion HCl [Wellbutrin XL] 150 mg tablet extended release 24 hr 150 mg PO QAM Qty: 90 3RF Rx Instructions: take 150 mg with 300 mg to total 450mg of Wellbutrin 450 mg daily per note dated 04/03/20 [facility] bupropion HCl 300 mg tablet extended release 24 hr 300 mg PO QAM MDD 450 mg Qty: 90 3RF Rx Instructions: Continuing Rx from [facility], 450mg in total trazodone 50 mg tablet 50 mg PO QHS quetiapine 100 mg tablet 100 mg PO QHS (DME) davina garcia See Rx Instructions .Route .MEDSUPPLY Qty: 1 0RF Rx Instructions: As directed jz-jl-fmbt-FA-Ca carb-vit K 18 mg iron-400 mcg-500 mg tablet 1 tab PO DAILY ferrous sulfate 325 mg (65 mg iron) tablet 325 mg PO DAILY Qty: 90 0RF Patient Comments: patient hasn't started aking bisacodyl [Dulcolax (bisacodyl)] 5 mg tablet,delayed release (DR/EC) 5 mg PO ONCE Qty: 4 0RF Rx Instructions: Take per colonoscopy instructions provided by ordering providers office polyethylene glycol 3350 17 gram/dose powder 17 g PO ONCE Qty: 238 0RF Rx Instructions: Take per colonoscopy instructions provided by ordering providers office duloxetine 20 mg capsule,delayed release(DR/EC) 40 mg PO DAILY Qty: 180 3RF Rx Instructions: per [facility] 01/17/20 (DME) hearing aids 0 .Route .MEDSUPPLY Qty: 1 0RF Rx Instructions: As directed; MEDICALLY CLEARED FOR HEARING AIDS atorvastatin 40 mg tablet 40 mg PO DAILY melatonin 3 mg tablet 3 mg PO HS PRN nitroglycerin 0.4 mg tablet, sublingual 0.4 mg sublingual Q5M PRN Rx Instructions: do not exceed 3 doses per episode polyethylene glycol 3350 [Miralax] 17 gram powder in packet 17 g PO DAILY PRN omeprazole 20 mg capsule,delayed release(DR/EC) See Rx Instructions .ROUTE .COMPLEX Qty: 28 5RF Dose Instruction: TAKE 1 CAPSULE BY MOUTH DAILY Rx Instructions: TAKE 1 CAPSULE BY MOUTH DAILY apixaban 5 mg tablet 5 mg PO BID Rx Instructions: 02/29/24 [facility] [place] Cardiology note, Apixaban 5mg, 1 tab PO BID, for 90 days.HE After loading with 2 tablets BID for 6 days pregabalin [Lyrica] 25 mg capsule 25 mg PO TID PRN (Reason: pain, with slow trial USING BOTTLE vs BUBBLE PACKS) Qty: 90 1RF Rx Instructions: Trial 1 capsule in the morning x2 days, then 2 caps x 1 week, then add third capsule @ midday (slow titration; ok with MEY qHS) lisinopril 10 mg tablet See Rx Instructions .ROUTE .COMPLEX Qty: 28 5RF Dose Instruction: TAKE 1 TABLET BY MOUTH DAILY Rx Instructions: TAKE 1 TABLET BY MOUTH DAILY ibuprofen 600 mg tablet See Rx Instructions .ROUTE .COMPLEX Qty: 28 5RF Dose Instruction: TAKE 1 TABLET BY MOUTH DAILY AT 5:35 TRIAL FOR ARTHRITIS TAKE WITH FOOD PLACE IN PACKS PLEASE Rx Instructions: TAKE 1 TABLET BY MOUTH DAILY AT 5:35 TRIAL FOR ARTHRITIS TAKE WITH FOOD PLACE IN PACKS PLEASE Discharge Instructions Additional Instructions: FINDINGS: No cancer, no inflammation, your colon appears healthy. You have very mild internal hemorrhoids which is extremely common, benign and nothing needs to be done about them. Repeat another colonoscopy in 10 years. Stand Alone Forms: Anesthesia Discharge Inst., Colonoscopy Post Instructions, Oscar Reed ([facility]) Activity:: Activity as Tolerated Diet:: As Tolerated
== END 2024-07-26 11:24 | disposition home or self-care (01) ==
LOC: SUR 08:05
PROVIDERS: PCP Family Medicine; Visit Provider Student in an Organized Health Care Education/Training Program
PROC: 0DJD8ZZ Inspection of Lower Intestinal Tract, Via Natural or Artificial Opening Endoscopic (ICD-10-PCS; CPT 45378; principal; 2024-07-26 09:15)
DX: Z12.11 Encounter for screening for malignant neoplasm of colon (principal); K64.0 First degree hemorrhoids
CPT/HCPCS: G0121; J2704

== ENCOUNTER 2024-08-03 03:04 | Outpatient (CLI) | payer MEDICARE, MEDICAID, SELFPAY ==
[2024-08-03 14:45] LABS: HGB 9.1 g/dL (11.2-15.7); MCH 23.9 pg (27.0-33.0); MCHC 29.4 % (32.0-36.0); MCV 81 fL (80-95); MPV 9.8 fL (8.0-11.0); Platelet Count 402 10^3/uL (130-400); RBC 3.81 10^6/uL (3.93-5.22); RDW 18.1 % (11.7-14.6); RDW-SD 54.1 fL; WBC 5.81 10^3/uL (4.4-10.8)
[2024-08-03 16:23] LABS: Iron 170 ug/dL (50-170)
== END 2024-08-03 03:05 | disposition home or self-care (01) ==
LOC: LBO 03:05
PROVIDERS: PCP Family Medicine; Referring Provider Family Medicine; Visit Provider Family Medicine
DX: D50.9 Iron deficiency anemia, unspecified (principal)
CPT/HCPCS: 36415; 85027; 83540

== ENCOUNTER 2024-08-15 03:07 | Emergency (ER) | payer MEDICARE, MEDICAID, SELFPAY ==
[2024-08-15] VITALS (45 sets, daily range): BP systolic 81–132; BP diastolic 47–75; PULSE 65–82; RESP 13–19; TEMP 36.2–36.6; O2SAT 89–97
--- NOTE | 2024-08-15 03:00 | DI.CT_ITS ---
Exam(s) CT HEAD CERVICAL SPINE WO EXAM: CT HEAD CERVICAL SPINE WO CLINICAL HISTORY: fall, hit posterior head, on Eliquis. TECHNIQUE: Imaging Protocol: Axial computed tomography images with coronal and sagittal reformatted images were created and reviewed COMPARISON: CT CT HEAD CERVICAL SPINE WO from 03/08/2024 FINDINGS: BRAIN: There are no skull fractures nor fluid in the visualized paranasal sinuses. There is no evidence of intracranial hemorrhage, mass effect, or shift of midline structures. There are no extra-axial fluid collections. The ventricles are not enlarged or shifted and there is no blo od within the ventricular system nor within the basal cisterns. There is symmetrical periventricular hypodensity consistent with chronic small vessel disease. Uncha nged. CERVICAL SPINE: There is no evidence of fracture nor listhesis. Developmental discontinuity of the posterior aspect of the C1 arch is evident. This is not a fracture. No significant prevertebral soft tissue swelling . Chronic disc space narrowing at C5-6 and C6-7 level again noted as is mild degenerative anterolisthes is of C4 upon C5, also unchanged. Some facet arthropathy in again noted. There is no significant facet joint malalignment. No significant osseous lesions evident. IMPRESSION: No acute intracranial findings on this noninfused CT scan of the brain.Chronic periventricular small- vessel white matter disease again noted, unchanged. No evidence of acute cervical spine fracture, malalignment, nor acute compromise of the cervical spin al canal. RADIATION DOSE DELIVERED: 1,234.22mGy.cm Total DLP DATA REPOSITORY: All CT scans at this facility are submitted to the National Radiology Data Registry (NRDR) Dose Index Registry (DIR) with the [employer] (A[employer]). RADIATION OPTIMIZATION: All CT scans at this facility use at least one of these dose optimization te chniques: automated exposure control; mA and/or kV adjustment per patient size (includes targeted exa ms where dose is matched to clinical indication); or iterative reconstruction.
--- NOTE | 2024-08-15 03:00 | RT.EKG_ITS ---
APPROVED REPORT Exam: Resting ECG Reason for Exam: syncope Patient Location: E HR:74 bpm ECG Measurements Heart Rate 74 AXIS RI 195 P -10 QRSd 86 QRS 98 QT 404 T 6 QTc 448 Conclusion Sinus rhythm...normal P axis, V-rate 60- 99 Right axis deviation...QRS axis ( 91,269) Low voltage, precordial leads...precordial leads <1.0mV I have reviewed and interpreted ECG and agree with software generated interpretation.
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
[2024-08-15 03:44] LABS: BE (Venous) -3 mmol/L (-2-3); HCO3 (Venous) 22 mmol/L (23-28); O2 Sat (Venous) 95 %; TCO2 (Venous) 21 mmol/L (24-29); pCO2 (Venous) 38 mmHg (41-51); pH (Venous) 7.38 (7.31-7.41); pO2 (Venous) 76 mmHg
[2024-08-15 03:45] LABS: Abs Immature Grans 0.02 10^3/uL (0.0-0.06); Absolute Basophil Count 0.07 10^3/uL (0.0-0.2); Absolute Eosinophil Count 0.33 10^3/uL (0.0-0.7); Absolute Lymphocyte Count 2.86 10^3/uL (1.2-3.4); Absolute Monocyte Count 1.01 10^3/uL (0.1-0.8); Absolute Neutrophil Count 4.25 10^3/uL (1.2-6.7); Basophils % 0.8 %; Eosinophils % 3.9 %; HCT 28.6 % (36.0-46.0); HGB 8.5 g/dL (11.2-15.7); Immature Grans % 0.2 %; Lymphocytes % 33.5 %; MCH 23.5 pg (27.0-33.0); MCHC 29.7 % (32.0-36.0); MCV 79 fL (80-95); MPV 9.7 fL (8.0-11.0); Monocytes % 11.8 %; Neutrophils % 49.8 %; Platelet Count 343 10^3/uL (130-400); RBC 3.61 10^6/uL (3.93-5.22); RDW 17.5 % (11.7-14.6); RDW-SD 50.4 fL; WBC 8.54 10^3/uL (4.4-10.8)
[2024-08-15] MEDS: Lactated Ringers 1,000 ML 1000 ML IV (03:48)
[2024-08-15 04:01] LABS: PTT Activated 23.9 sec (20.6-30.2); Prothrombin Time 10.4 sec (9.1-11.1)
[2024-08-15 04:09] LABS: Diff Comment RBC Morph Reviewed; Hypochromasia 1+
[2024-08-15 04:14] LABS: ALT 21 U/L (14-59); AST 38 U/L (15-37); Albumin 3.3 g/dL (3.4-5.0); Alkaline Phosphatase 71 U/L (46-116); Anion Gap 12.9 mmol/L (3-11); BUN 12 mg/dL (7-18); Bilirubin, Total 0.3 mg/dL (0.2-1.0); CO2 24.1 mmol/L (21.0-32.0); CREATININE 1.2 mg/dL (0.55-1.02); Calcium 8.9 mg/dL (8.5-10.1); Chloride 99 mmol/L (98-107); ETHANOL BLOOD 34.8 mg/dL (<10); Estimated GFR 49.92 (mL/min/1.73m2); Glucose 86 mg/dL (74-106); Potassium 4.4 mmol/L (3.5-5.1); Sodium 136 mmol/L (136-145); TSH (W/Ref FT4) 2.58 uIU/mL (0.36-3.74); Total Protein 6.7 g/dL (6.4-8.2)
[2024-08-15 04:16] LABS: Troponin I 55 ng/L (<or=51)
--- NOTE | 2024-08-15 04:36 | DI.VRAD_ITS ---
PROCEDURE INFORMATION: Exam: CT Head Without Contrast Exam date and time: 08/15/2024 3:42 AM Age: 64 years old Clinical indication: Injury or trauma; Blunt trauma (contusions or hematomas); Without loss of consciousness; Injury date: 08/15/24; Injury details: Fall, hit posterior head, on eliquis; Prior surgery; Surgery date: 1-6 months; Surgery type: Thyroid biopsy TECHNIQUE: Imaging protocol: Computed tomography of the head without contrast. Radiation optimization: All CT scans at this facility use at least one of these dose optimization techniques: automated exposure control; mA and/or kV adjustment per patient size (includes targeted exams where dose is matched to clinical indication); or iterative reconstruction. COMPARISON: CT HEAD CERVICAL SPINE WO 03/08/2024 5:04 PM FINDINGS: Limitations: Mild motion artifact. Brain: No intracranial hemorrhage appreciated. No significant focal mass effect or significant midline shift. Generalized parenchymal volume loss. Chronic ischemic changes are noted. Cerebral ventricles: No disproportionate ventriculomegaly. Paranasal sinuses: No air-fluid levels seen. Mastoid air cells: No mastoid effusion. Bones: No acute cranial vault fracture seen. Soft tissues: No acute findings. Vasculature: Arterial calcifications. IMPRESSION: No intracranial sequelae of trauma appreciated. PROCEDURE INFORMATION: Exam: CT Cervical Spine Without Contrast Exam date and time: 08/15/2024 3:42 AM Age: 64 years old Clinical indication: Injury or trauma; Blunt trauma (contusions or hematomas); Without loss of consciousness; Injury date: 08/15/24; Injury details: Fall, hit posterior head, on eliquis; Prior surgery; Surgery date: 1-6 months; Surgery type: Thyroid biopsy TECHNIQUE: Imaging protocol: Computed tomography of the cervical spine without contrast. Radiation optimization: All CT scans at this facility use at least one of these dose optimization techniques: automated exposure control; mA and/or kV adjustment per patient size (includes targeted exams where dose is matched to clinical indication); or iterative reconstruction. COMPARISON: CT HEAD CERVICAL SPINE WO 03/08/2024 5:04 PM FINDINGS: Limitations: Mild motion artifact. Bones: No acute cervical spine fracture seen. Degenerative changes, most pronounced at C5-C6 where there is marked right and moderate left foraminal narrowing and C6-C7 where there is marked right foraminal narrowing. Chronic posterior arch defect of C1. Straightening of the normal cervical lordosis may reflect positioning or muscle spasm; correlate clinically. Trachea: Soft tissue calcifications to the right of the trachea, possibly within enlarged vessels or thyroid. These were present previously. Consider follow-up. Lungs: No acute findings. Lymph nodes: Bilateral cervical lymph nodes. Vasculature: Arterial calcifications. Soft tissues: See Bones finding. IMPRESSION: 1. No cervical spine fracture seen. 2. Findings as above. Dictated and Authenticated by: Haley Jean MD. Orderin Duane Vivar MD
[2024-08-15 05:05] LABS: Troponin I 59 ng/L (<or=51)
[2024-08-15 05:13] LABS: NT-proBNP 167 pg/mL (<300)
[2024-08-15 07:06] LABS: Troponin I 57 ng/L (<or=51)
[2024-08-15 07:12] LABS: Bilirubin Negative (Negative); Blood Negative (Negative); Clarity Clear (Clear); Glucose Negative (Negative); Ketones Negative (Negative); Leukocyte Esterase Negative (Negative); Nitrite Negative (Negative); Specific Gravity <= 1.005 (1.005-1.025); Urobilinogen 0.2 mg/dL (Up to 0.2); pH 5.5 (5-8)
== END 2024-08-15 08:06 | disposition home or self-care (01) ==
PROVIDERS: Emergency Provider Student in an Organized Health Care Education/Training Program; PCP Family Medicine
DX: F10.120 Alcohol abuse with intoxication, uncomplicated (principal); D64.9 Anemia, unspecified; R53.1 Weakness; I10 Essential (primary) hypertension; Z86.718 Personal history of other venous thrombosis and embolism; Z86.711 Personal history of pulmonary embolism; Z79.01 Long term (current) use of anticoagulants; Z87.891 Personal history of nicotine dependence
CPT/HCPCS: 36415; 36430; 80053; 82805; 86850; 86900; 86901; 86920; 93005; 96360; 96361; 99285; 70450; 72125; 80320; 81003; 83880; 84443; 84484; 85025; 85610; 85730; 93010; P9016